=== PATIENT | female | born 1940 | race Caucasian/White ===

== ENCOUNTER 2022-05-03 09:32 | Inpatient (IN) ==
--- NOTE | 2022-04-10 11:39 | PAT Medication Instructions ---
Medication Instructions Date of Service April 10, 2022 Home Medications aspirin 81 mg capsule 81 mg PO QAM carvedilol 12.5 mg tablet 12.5 mg PO BID cholecalciferol (vitamin D3) 50 mcg (2,000 unit) tablet (Vitamin D3) 50 mcg PO QPM famotidine 40 mg tablet 40 mg PO QPM folic acid 1 mg tablet 1 mg PO QAM glyburide 2.5 mg tablet 2.5 mg PO QAM hydralazine 50 mg tablet 50 mg PO TID iron,carbonyl 65 mg-vitamin C 125 mg tablet,delayed release (Vitron-C) 1 tab PO QAM levothyroxine 100 mcg tablet (Synthroid) 100 mcg PO QAM lorazepam 0.5 mg tablet 0.5 mg PO DAILY PRN losartan 25 mg tablet 25 mg PO BID magnesium oxide 250 mg PO QPM leygweehoujd-fifppvcm-qjarnt tablet 1 tab PO QAM pantoprazole 20 mg tablet,delayed release 20 mg PO QAM rosuvastatin 5 mg tablet (Crestor) 5 mg PO QPM DO NOT take the morning of surgery folic acid 1 mg tablet 1 mg PO QAM glyburide 2.5 mg tablet 2.5 mg PO QAM iron,carbonyl 65 mg-vitamin C 125 mg tablet,delayed release (Vitron-C) 1 tab PO QAM losartan 25 mg tablet 25 mg PO BID hnorlfozerkl-azgrewdp-ouinhp tablet 1 tab PO QAM Take morning of surgery With a small sip of water, OTHERWISE NOTHING TO EAT OR DRINK AFTER MIDNIGHT: aspirin 81 mg capsule 81 mg PO QAM (unless surgeon directed otherwise) carvedilol 12.5 mg tablet 12.5 mg PO BID hydralazine 50 mg tablet 50 mg PO TID levothyroxine 100 mcg tablet (Synthroid) 100 mcg PO QAM lorazepam 0.5 mg tablet 0.5 mg PO DAILY PRN (if needed) pantoprazole 20 mg tablet,delayed release 20 mg PO QAM Take evening before surgery carvedilol 12.5 mg tablet 12.5 mg PO BID cholecalciferol (vitamin D3) 50 mcg (2,000 unit) tablet (Vitamin D3) 50 mcg PO QPM famotidine 40 mg tablet 40 mg PO QPM hydralazine 50 mg tablet 50 mg PO TID losartan 25 mg tablet 25 mg PO BID magnesium oxide 250 mg PO QPM rosuvastatin 5 mg tablet (Crestor) 5 mg PO QPM Other Notes If you have any questions please call us at [phone] or [phone] or [phone] or [phone]
--- NOTE | 2022-04-12 14:48 | Anesthesiology Consultation ---
Date of Service April 12, 2022 Assessment & Plan (1) Encounter for pre-operative examination: Chart Review Chart Review: Acceptable Risk for Surgery (pending cardio clearance (04/15/22), previous carotid testing (done at cardio office), PCP clearance (04/18/22) with response to note, and preop Covid testing results ) and Patient seen in Pre Admission Testing - Awaiting cardio clearance (04/15/22) (will also attempt to get carotid testing) - Awaiting PCP clearance (04/18/22) (sent note to PCP regarding anemia, thrombocytopenia and elevated creatinine) - Check BSG AM DOS Per PAT appt on 04/12/22, patient denies any recent travel or large group activities. No known Covid positive exposures or Covid related symptoms. No known Covid infection in the past 90 days. Pt is vaccinated for Covid. Preop Covid testing scheduled 04/30/22 (in [place]) = will await results. Educated on importance of self quarantining, social distancing and wearing mask in public for the patient one week prior to surgery and after Covid testing done Teaching & Discussion Pre-Anesthesia Teaching/Discussion Notes: Instructed NPO after midnight before surgery,except medications with 15 cc of water. Medication instructions provided according to the PAT guidelines. History Surgery Operation Date: 05/03/22 07:45 Proposed Procedures p L3-L4 Decompression Fusion, Spinal Cord Monitoring - Cristhian Chanel DO Height/Weight Height: 5 ft 6 in Weight: 83.2 kg Allergies Allergy/AdvReac Type Severity Reaction Status Date / Time No Known Allergies Allergy Verified 04/10/22 08:18 Medications Home Medications Medication Instructions Recorded Confirmed Last Taken aspirin 81 mg capsule 81 mg PO QAM 04/10/22 04/10/22 Unknown carvedilol 12.5 mg tablet 12.5 mg PO BID 04/10/22 04/10/22 Unknown cholecalciferol (vitamin D3) 50 50 mcg PO QPM 04/10/22 04/10/22 Unknown mcg (2,000 unit) tablet (Vitamin D3) famotidine 40 mg tablet 40 mg PO QPM 04/10/22 04/10/22 Unknown folic acid 1 mg tablet 1 mg PO QAM 04/10/22 04/10/22 Unknown glyburide 2.5 mg tablet 2.5 mg PO QAM 04/10/22 04/10/22 Unknown hydralazine 50 mg tablet 50 mg PO TID 04/10/22 04/10/22 Unknown iron,carbonyl 65 mg-vitamin C 125 1 tab PO QAM 04/10/22 04/10/22 Unknown mg tablet,delayed release (Vitron-C) levothyroxine 100 mcg tablet 100 mcg PO QAM 04/10/22 04/10/22 Unknown (Synthroid) lorazepam 0.5 mg tablet 0.5 mg PO DAILY PRN 04/10/22 04/10/22 Unknown losartan 25 mg tablet 25 mg PO BID 04/10/22 04/10/22 Unknown magnesium oxide 250 mg PO QPM 04/10/22 04/10/22 Unknown xvjlobhvpsyd-spyebhpa-ftnyjy tablet 1 tab PO QAM 04/10/22 04/10/22 Unknown pantoprazole 20 mg tablet,delayed 20 mg PO QAM 04/10/22 04/10/22 Unknown release rosuvastatin 5 mg tablet (Crestor) 5 mg PO QPM 04/10/22 04/10/22 Unknown Past Medical History Medical History (Updated 04/12/22 @ 15:32 by Roseann Mcdaniels PA-C) Anemia Hx - taking iron, transfusion 2015 Anxiety Arthritis Right hip CAD (coronary artery disease) S/p stents to diagonal and circumflex 2010 Borderline significant distal Cx disease, not amendable to stenting, moderate nonobstructive CAD otherwise Carotid stenosis Nonobstructive/bilateral per cardio records Less than 50% stenosis bilaterally per carotid doppler 2019 per 08/2021 cardio note Chronic kidney disease Stage III Diabetes mellitus, type 2 NIDDM GERD (gastroesophageal reflux disease) Well controlled and stable Hyperlipidemia Pt denies- states she is on statin for maintenance Hypertension Hypothyroidism PAD (peripheral artery disease) S/p left SFA atherectomy, 2010 Sleep apnea cpap TIA (transient ischemic attack) 2007 per cardio records Exercise / Class Metabolic Activity II 4-5 Yardwork/Stairs/Walk up hill (one flight of stairs - no chest pain or SOB ) Past Family History Family History Sister Diabetes Past Surgical History Surgical History History of appendectomy History of cardiac cath 02/2011 and 03/2011 Dr. Montano - stents placed History of cholecystectomy History of colonoscopy History of heart artery stent 03/01/2011 04/10/2011 - pt didn't feel right - went to doctor - had stress test - found blockage - Dr. Montano placed - Follows Esteb[facility] Norma at [facility] History of right hip replacement Hx of bilateral cataract extraction Past Anesthesia History No Hx of Anesthesia Complications and No Family Hx of Anesthesia Complications History of PONV No Hx of PONV and No Hx of Motion Sickness Social History Smoking Status: Former smoker tobacco type: cigarettes Do You Dip or Chew Tobacco: No Smoking End Date: 2006 Hx Alcohol Use: No Hx Substance Use: No substance use type: does not use Review of Systems Hx of blood transfusion 2015- s/p MALIHA Patient denies chest pain, shortness of breath, dyspnea on exertion, reflux, cough, wheezing, palpitations. No hx of seizures. No hx of blood clots. Physical Exam Vital Signs VITALS BP 154/69 (usually well controlled per patient) P 58 TEMP 98.5 SP02 95% RESP 16 Constitutional no acute distress ENMT Mouth: no TMJ clicking Thyromental Distance: > or= 3.5 Finger Breadths (3.5) Mallampati Class: II (smaller airway ) Full denture on top and bottom Neck + limited neck extension (mild ) Respiratory normal respiratory effort; no respiratory distress Auscultation: lungs clear to auscultation bilaterally; no wheezes Cardiovascular Rate/Rhythm: regular rate and regular rhythm Heart Sounds: no murmur Vessels: no carotid bruit Musculoskeletal Spine: no pain with cervical ROM Extremities: extremities normal to inspection Psychiatric Orientation: alert Lab Results Anesthesia Preop Results Results Anesthesia Widget: WBC 6.89 K/uL (4.8-10.8) 04/12/22 Hgb 11.2 g/dL (12.0-16.0) L 04/12/22 Hct 35.0 % (37-47) L 04/12/22 Plt 120 K/uL (130-400) L 04/12/22 Na 139 mmol/L (136-145) 04/12/22 K 4.5 mmol/L (3.5-5.1) 04/12/22 Cl 107 mmol/L (98-107) 04/12/22 CO2 28 mmol/L (21-32) 04/12/22 BUN 31 mg/dl (6-23) H 04/12/22 Creat 1.85 mg/dl (0.6-1.2) H 04/12/22 Glucose Level 93 mg/dl (70-99(Fasting)) 04/12/22 PT 11.1 Seconds (9.0-12.0) 04/12/22 PTT 28.2 Seconds (21.0-31.0) 04/12/22 INR 1.0 (0.9-1.1) 04/12/22 HA1c 7.6 % (4.5-5.6) H 04/12/22 Urine Color Yellow 04/12/22 Urine Appearance Clear (Clear) 04/12/22 Urine pH 7.0 (4.5-7.5) 04/12/22 Urine Specific [place] 1.015 (1.000-1.030) 04/12/22 Urine Protein Negative (Negative) 04/12/22 Urine Glucose (UA) Negative (Negative) 04/12/22 Urine Ketones Negative (Negative) 04/12/22 Urine Blood Negative (Negative) 04/12/22 Urine Nitrite Negative (Negative) 04/12/22 Urine Bilirubin Negative (Negative) 04/12/22 Urine Urobilinogen Negative (Negative) 04/12/22 Urine Leukocyte Esterase 1+ (Negative) H 04/12/22 Urine WBC (Auto) 10-30 /hpf (0-5) H 04/12/22 Urine RBC (Auto) 0-4 /hpf (0-4) 04/12/22 Urine Hyaline Casts (Auto) 0 /lpf (0-5) 04/12/22 Urine Epithelial Cells (Auto) >30 /lpf (0-5) H 04/12/22 Urine Bacteria (Auto) 2+ (Negative) H 04/12/22 Blood Type O Positive 04/12/22 Antibody Screen NEGATIVE 04/12/22 Testing Laboratory Results Sent note to PCP regarding mild anemia/thrombocytopenia and elevated creatinine (also informed surgeon's office) Electrocardiogram Date: 04/12/22 Findings: + SB @ (54bpm ) Otherwise normal EKG per cardio Chest X-Ray Date: 04/12/22 Findings: + NAD Echocardiogram Date: 09/04/21 EF: 55-60% LV Function: normal Other Findings: + LVH (borderline/concentric ) Left and right atrium mildly enlarged. Mild MR. Mild TR. Borderline pulm HTN- estimated PASP is 37mmHg. Compared to ECHO 09/05/20- no significant change Stress Test Date: 05/03/16 Type: nuclear SPECT perfusion images are considered to be within normal limits. CAD and ischemiarelatively well. LVEF 71%. Normal wall motion.
[~2022-05-03 09:32] MED LIST: ACETAMINOPHEN 500 MG TAB PO SCH; CeleBREX 200 MG CAP PO SCH; GABAPENTIN 300 MG CAP PO SCH; SODIUM CHLORIDE 0.9% 1000ML IV SCH; ceFAZolin 2000MG 2,000 MG/15 ML SYR IV SCH
[2022-05-03] MEDS ORDERED: fentaNYL citrate 100 MCG/2 ML VIAL ONE (10:21)
[2022-05-03] MEDS ORDERED: ONDANSETRON INJ 2 MG/ML 2 ML VIAL ONE (10:22)
[2022-05-03] MEDS ORDERED: LIDOCAINE 2% 2 ML VIAL/AMP(20MG/ML) INFIL ONE (10:22)
[2022-05-03] MEDS ORDERED: DEXAMETHASONE SOD INJ 4 MG/ML VIAL ONE (10:22)
[2022-05-03] MEDS ORDERED: PROPOFOL IV EMULSION 10 MG/ML 20 ML VIAL IV ONE (10:22)
[2022-05-03] MEDS ORDERED: ROCURONIUM BROMIDE 10 MG/ML 5 ML VIAL IV ONE ×4 (10:22→12:05)
--- NOTE | 2022-05-03 10:58 | History & Physical Bridge Note ---
Date of Service May 03, 2022 History & Physical Bridge Note I have examined the patient, reviewed the History & Physical and in the interval since the performance of the History & Physical I have noted the following changes of clinical significance: no changes noted
--- NOTE | 2022-05-03 10:59 | History & Physical Report ---
Date of Service May 03, 2022 Assessment & Plan (1) Neurogenic claudication due to lumbar spinal stenosis: Plan: L3-L4 decompression and fusion History of Present Illness Chief Complaint: Back and leg pain Primary Care Provider: LAURENCE Marrero This is an 81-year-old female presents with chronic persistent back and leg pain. Failing course of nonoperative care she is here for surgical intervention. Allergies Allergy/AdvReac Type Severity Reaction Status Date / Time No Known Allergies Allergy Verified 05/03/22 10:16 Home Medications Medication Instructions Recorded Confirmed Type aspirin 81 mg capsule 81 mg PO QAM 04/10/22 05/03/22 History carvedilol 12.5 mg tablet 12.5 mg PO BID 04/10/22 05/03/22 History cholecalciferol (vitamin D3) 50 50 mcg PO QPM 04/10/22 05/03/22 History mcg (2,000 unit) tablet (Vitamin D3) famotidine 40 mg tablet 40 mg PO QPM 04/10/22 05/03/22 History folic acid 1 mg tablet 1 mg PO QAM 04/10/22 05/03/22 History glyburide 2.5 mg tablet 2.5 mg PO QAM 04/10/22 05/03/22 History hydralazine 50 mg tablet 50 mg PO TID 04/10/22 05/03/22 History iron,carbonyl 65 mg-vitamin C 125 1 tab PO QAM 04/10/22 05/03/22 History mg tablet,delayed release (Vitron-C) levothyroxine 100 mcg tablet 100 mcg PO QAM 04/10/22 05/03/22 History (Synthroid) lorazepam 0.5 mg tablet 0.5 mg PO DAILY PRN 04/10/22 05/03/22 History losartan 25 mg tablet 25 mg PO BID 04/10/22 05/03/22 History magnesium oxide 250 mg PO QPM 04/10/22 05/03/22 History lktrihcommaj-sklqqieg-mbquul tablet 1 tab PO QAM 04/10/22 05/03/22 History pantoprazole 20 mg tablet,delayed 20 mg PO QAM 04/10/22 05/03/22 History release rosuvastatin 5 mg tablet (Crestor) 5 mg PO QPM 04/10/22 05/03/22 History Past Med/Surg History Medical History (Updated 05/03/22 @ 10:58 by Cristhian Chanel, DO) Anemia Hx - taking iron, transfusion 2015 Anxiety Arthritis Right hip CAD (coronary artery disease) S/p stents to diagonal and circumflex 2010 Borderline significant distal Cx disease, not amendable to stenting, moderate nonobstructive CAD otherwise Carotid stenosis Nonobstructive/bilateral per cardio records Less than 50% stenosis bilaterally per carotid doppler 2019 per 08/2021 cardio note Chronic kidney disease Stage III Diabetes mellitus, type 2 NIDDM GERD (gastroesophageal reflux disease) Well controlled and stable Hyperlipidemia Pt denies- states she is on statin for maintenance Hypertension Hypothyroidism PAD (peripheral artery disease) S/p left SFA atherectomy, 2010 Sleep apnea cpap TIA (transient ischemic attack) 2007 per cardio records Surgical History History of appendectomy History of cardiac cath 02/2011 and 03/2011 Dr. Montano - stents placed History of cholecystectomy History of colonoscopy History of heart artery stent 03/01/2011 04/10/2011 - pt didn't feel right - went to doctor - had stress test - found blockage - Dr. Montano placed - Follows Esteban Green at [facility] History of right hip replacement Hx of bilateral cataract extraction Family History Sister Diabetes Social History Smoking Status: Former smoker Smoking End Date: 2006; Second Hand Exposure: No; Do You Dip or Chew Tobacco: No; Tobacco Cessation Education Requested by Patient: No Hx Alcohol Use: No Hx Substance Use: No Preferred Language: Cypriot Communication Ability: Effective Laminating Machine Offbearer Required: No Beliefs That Will Affect Care: None Current Living Situation: Alone Other Information That Helps Us Care for You: No Feels Safe at Home: Yes Safety Concerns: Feels Safe At This Time Assistive Devices: CPAP, Denture - Upper, Denture - Lower and Glasses Physical Exam Physical Exam: Patient is alert and oriented Heart regular in rhythm Lungs clear Results & Data Results & Data ([facility]) Vital Signs (Past 12 Hours) Vital Signs Temp Pulse Resp BP Pulse Ox 05/03/22 10:12 37.1 C 65 20 160/82 H 95
[2022-05-03] MEDS ORDERED: PROMETHAZINE HCL 12.5 MG in SODIUM CHLORIDE 0.9% 50 ML IV PRN ×2 (11:06→15:57)
[2022-05-03] MEDS ORDERED: HYDROmorphone INJ 2 MG/ML SYR/VIAL IV PRN (11:06)
[2022-05-03] MEDS ORDERED: ePHEDrine sulfate 50 MG/ML AMP IV PRN (11:06)
[2022-05-03] MEDS ORDERED: ONDANSETRON INJ 2 MG/ML 2 ML VIAL IV PRN ×2 (11:06→15:57)
[2022-05-03] MEDS ORDERED: fentaNYL citrate 100 MCG/2 ML VIAL IV PRN (11:06)
[2022-05-03] MEDS ORDERED: ATROPINE SULFATE 0.1 MG/ML 10ML SYR IV PRN (11:06)
[2022-05-03] MEDS ORDERED: BUPIVACAINE/EPINEPHRINE 0.25% 1:200,000 30 ML VIAL ONE (11:22)
[2022-05-03] MEDS ORDERED: ceFAZolin 330 MG/ML 1 GM VIAL ONE (11:22)
[2022-05-03] MEDS ORDERED: FLOSEAL HEMOSTATIC MATRIX 10ML TOP ONE (13:04)
[2022-05-03] MEDS: SODIUM CHLORIDE 0.9% 1000ML 1,000 ML IV SCH (13:20)
--- NOTE | 2022-05-03 13:26 | Operative Report ---
Post Operative Report Pre & Post Diagnosis Operation Date: 05/03/22 11:35 Pre-Op Diagnosis: Neurogenic Claudication due to Lumbar Spinal Stenosis Post-Op Diagnosis: Neurogenic Claudication due to Lumbar Spinal Stenosis I identified the patient and participated in the time-out.: Yes Procedure Operation Date: 05/03/22 11:35 Actual Procedures #1 lumbar decompression bilateral medial facetectomies foraminotomies L2-L3 L3- L4 per #2 posterior spinal fusion L3-L4. #3 placed posterior instrumentation L3-L4. #4 interbody fusion L3-L4. #5 placement of Spira 14 x 26 mm cage at L3- L4. #6 placement locally harvested morselized autograft in the posterior gutters. #7 placement of I factor model V toss in the interbody space and posterior lateral gutters. Surgeon Cristhian Chanel, Environmental Designer None Estimated Blood Loss 75 Findings Consistent with Post-Op Diagnosis Specimens None Indications This is a 81-year-old female that presents above-mentioned diagnosis after failing course of nonoperative care she is here for surgical invention. Description of Procedure Patient was met with identified informed consent obtained. Patient was then taken to the operative suite underwent a patient placed in a prone position on the Joon on top of the Bran frame. All bony prominences well-padded eyes inspected to ensure no external pressure placed upon them. This point the lumbar spine was prepped and draped in the normal sterile fashion. Sharp dissection with the assistance of Bovie cautery was performed down to and exposing the lamina and transverse processes of L3 and L4 bilaterally. From a caudal to cephalad fashion complete laminectomy of L3 partial laminectomy of L2 was performed including bilateral medial facetectomies and foraminotomies addressing severe spinal stenosis. Pedicle screws were then placed at L3 and L4 bilaterally with assistance of fluoroscopy and the properly sized nicole placed. By way of entrance foraminal approach and right complete discectomy of L5-L4 was performed endplates curetted to subcortical being bone and a 14 x 26 mm spiral cage with I factor tapped in position. The rods then compressed locked into final position bilaterally. The transverse processes of L3 and L4 burred to subcortical bleeding bone. I factor combined with V toss and locally harvested morselized autograft was placed in the posterior gutters. 15 round JEVON drain inserted. The incision was then closed with 1 Vicryl in the fascia 2-0 Vicryl subcutaneously and 4 Monocryl for final skin closure. Steri-Strip sterile dressings placed. Patient waken taken PACU stable condition. Please note spinal cord monitoring was utilized at the procedure no changes noted. I attest to the content of the Intraoperative Record and any orders documented therein. Any exceptions are noted below.
[2022-05-03] MEDS ORDERED: GLYCOPYRROLATE 0.2 MG/ML VIAL ONE (13:44)
[2022-05-03] MEDS ORDERED: NEOSTIGMINE METHYLSULFATE 1 MG/ML 10ML VIAL ONE (13:44)
--- NOTE | 2022-05-03 13:45 | Fluoroscopy Report ---
FL lumbar spine 2-3V CLINICAL HISTORY: L3-L4 DECOMP/FUSION COMPARISON STUDY: None. FLUOROSCOPY TIME: 19 seconds. FINDINGS: 2 fluoroscopic spot images of the lumbar spine demonstrate posterior decompression and fusi on with pedicle screws and rods at L3-L4. Disc spacers in place. The hardware appears intact. IMPRESSION: Fluoroscopic assistance provided for posterior decompression and fusion at L3-L4. ACT 112: Negative or not required by law. Electronically signed by: Robin Celaya M.D. 05/03/2022 1:43 PM
--- NOTE | 2022-05-03 14:20 | Anesthesiology Progress Note ---
Date of Service May 03, 2022 Anesthesia Post Procedure Vital Signs Vital Signs: Temp Pulse Resp BP Pulse Ox 05/03/22 14:10 52 L 12 144/55 H 97 05/03/22 14:00 60 12 156/60 H 96 05/03/22 13:50 54 L 12 157/60 H 100 05/03/22 13:40 58 L 12 134/69 100 05/03/22 13:37 97.3 F L 56 L 12 136/54 L 100 05/03/22 10:12 98.8 F 65 20 160/82 H 95 Pain Intensity Lower Back: Pain Intensity: 0 Transfer of Care Handoff Completed per policy Notes Mental Status: alert / awake / arousable and participated in evaluation Patient Amnestic to Procedure: Yes Nausea / Vomiting: adequately controlled Pain: adequately controlled Airway Patency, RR, SpO2: stable & adequate BP & HR: stable & adequate Hydration State: stable & adequate Anesthetic Complications: no major complications apparent and Pt Satisfied with anesthetic care
[2022-05-03] MEDS ORDERED: METOCLOPRAMIDE HCL INJ 5 MG/ML 2 ML VIAL IV PRN (15:57)
[2022-05-03] MEDS ORDERED: ONDANSETRON 4 MG OD TAB PO PRN (15:57)
[2022-05-03] MEDS ORDERED: NALOXONE HCL 0.4 MG/1 ML VIAL/CARP IV PRN (15:57)
[2022-05-03] MEDS ORDERED: diphenhydrAMINE Capsule 25 MG CAP PO PRN (15:57)
[2022-05-03] MEDS ORDERED: hydrOXYzine HCl 25 MG TAB PO PRN (15:57)
[2022-05-03] MEDS ORDERED: HYDROmorphone INJ 1 MG/ML SYRINGE IV PRN (15:57)
[2022-05-03] MEDS ORDERED: bisacodyL 10 MG SUPP PR PRN (15:57)
[2022-05-03] MEDS ORDERED: MAGNESIUM HYDROXIDE SUSP 30 ML UDC PO PRN (15:57)
[2022-05-03] MEDS ORDERED: ACETAMINOPHEN 1,000 MG/100 ML VIAL IV PRN (15:57)
[2022-05-03] MEDS ORDERED: traMADol HCL 50 MG TABLET PO PRN (15:57)
[2022-05-03] MEDS ORDERED: DO NOT ADMINISTER FLU VACCINE PRN (15:57)
[2022-05-03] MEDS ORDERED: FAMOTIDINE 20 MG TAB PO PRN (15:57)
[2022-05-03] MEDS ORDERED: ALUMINUM/MAGNESIUM SUSP 30 ML UDC PO PRN (15:57)
[2022-05-03] MEDS ORDERED: LORazepam 0.5 MG in SYRINGE 0.25 ML IV PRN (15:57)
[2022-05-03] MEDS ORDERED: HYDROmorphone INJ 0.5 MG/0.5 ML SYR IV PRN (15:57)
[2022-05-03] MEDS ORDERED: LORazepam 0.5 MG TAB PO PRN (15:57)
[2022-05-03] MEDS ORDERED: DO NOT ADMINISTER PNEUMOCOCCAL VACCINE PRN (15:57)
[2022-05-03] MEDS ORDERED: SOD PHOSPHATE/SOD BIPHOSPHATE ENEMA 132 ML BTL PR PRN (15:57)
[2022-05-03] MEDS: hydrALAZINE TAB 50 MG TAB PO SCH ×2 (16:47→20:24)
--- NOTE | 2022-05-03 17:14 | Hospitalist Consultation ---
Date of Consultation May 03, 2022 Assessment & Plan (1) S/P spinal surgery: This is an 81-year-old female with PMH of type 2 diabetes, CAD (s/p stents 2010), CKD 3-4, anemia, hypertension, hyperlipidemia, OLE on CPAP, history of TIA, chronic back pain and other medical problems listed below who is POD#0 s/p lumbar decompression bilateral medial facetectomies foraminotomies L2-L3 L3-L4 and posterior spinal fusion L3-L4 by Dr. Chanel. POD#0 s/p lumbar decompression bilateral medial facetectomies foraminotomies L2- L3 L3-L4 and posterior spinal fusion L3-L4 by Dr. Chanel Per ortho for pain control, wound care, anticoagulation and activities Monitor H&H (pre-op hgb 11.2), continue incentive spirometry, PT/OT when appropriate (2) Hypertension: Continue Carvedilol, hydralazine. Monitor AM BMP for renal status prior to resuming losartan in AM (3) Diabetes mellitus, type 2: A1c unknown; ordered for AM Hold home agents SSI while in-patient BSG AC HS (4) Chronic kidney disease: Baseline Cr ~1.85. Avoid nephrotoxic agents. Monitor with daily BMP (5) CAD (coronary artery disease): S/p stents in 2010. No chest pain. Normal pre-op stress test last month with [facility] cardiology. Continue aspirin, statin, carvedilol (6) PAD (peripheral artery disease): Intervention to Left SFA in 2010. Continue aspirin, statin (7) Anxiety: Ativan PRN (8) Anemia: Pre-op hgb 11. Monitor with daily CBC. Has required blood transfusion in the past for anemia (9) Hypothyroidism: Continue levothyroxine (10) Sleep apnea: CPAP HS PCP: José Dispo: Per primary service Patient seen in collaboration with Dr. Martinez. Please see addendum. Thank you for this consultation. We will follow the patient with you during their hospital stay. You can reach a [facility] via pager @ [phone]. Supervising Physician Co-Signing Physician Notes 51-year-old lady with PMH of T2DM, CAD status post stents, CKD stage III-IV, HTN, HLD, OLE on CPAP, TIA is a medical consult for lumbar decompression and fusion by Dr. Chanel on 05/03/2022. Patient seen and examined at bedside, just done with her dinner, tolerated full liquid diet well, reports pain under control at incision site, reports improvement in her right calf radicular pain. Labs in a.m., watch for acute blood loss anemia. Incentive spirometer. DVT prophylaxis/pain management/PT OT per primary team. Continue with/resume home meds as and when appropriate. Upon Exam : GENERAL: Alert and oriented x3. NAD, on 1L NC O2 HEENT: No pallor, no icterus. Pupils equal, round and reactive to light. Oral mucosa moist. NECK: No JVD, no neck masses. HEART: S1 and S2 heard. Regular rate and rhythm. No murmur, no gallop. RESPIRATORY SYSTEM: Normal AP diameter. No accessory muscle use. No wheezing, no crackles. ABDOMEN: Soft, bowel sounds present, nontender, no distention. CENTRAL NERVOUS SYSTEM: No facial droop. Speech is clear. Obeys simple commands. Moves extremities. EXTREMITIES: No edema, no erythema seen. Distal neurovascular status intact. Low back with clean dressing, JEVON drain with scant serosanguineous collection noted. I have seen and examined the patient and have discussed the case with the provider above. I agree with the assessment and plan as stated. History of Present Illness Reason for Consultation: Postop medical management Attending Physician: Cristhian Chanel, History of Present Illness This is an 81-year-old female with PMH of type 2 diabetes, CAD (s/p stents 2010), CKD 3-4, anemia, hypertension, hyperlipidemia, OLE on CPAP, history of TIA, chronic back pain and other medical problems listed below who is POD#0 s/p lumbar decompression bilateral medial facetectomies foraminotomies L2-L3 L3-L4 and posterior spinal fusion L3-L4 by Dr. Chanel. Patient is feeling well postoperatively. Endorsing 5 out of 10 surgical site pain but no weakness or paresthesias of lower extremities, which is much improved from preoperative state. Tolerated clear liquid diet without any issue. No nausea or vomiting. No fever, chills, lightheadedness, headache, chest pain, shortness of breath, abdominal pain. Has not urinated postoperatively yet. Bowel movement was this morning. Follows with primary care and [facility] clinic. Follows with [facility] cardiology and underwent preoperative stress test which was normal back in March. Allergies Allergy/AdvReac Type Severity Reaction Status Date / Time No Known Allergies Allergy Verified 05/03/22 10:16 Home Medications Medication Instructions Recorded Confirmed Type aspirin 81 mg capsule 81 mg PO QAM 04/10/22 05/03/22 History carvedilol 12.5 mg tablet 12.5 mg PO BID 04/10/22 05/03/22 History cholecalciferol (vitamin D3) 50 50 mcg PO QPM 04/10/22 05/03/22 History mcg (2,000 unit) tablet (Vitamin D3) famotidine 40 mg tablet 40 mg PO QPM 04/10/22 05/03/22 History folic acid 1 mg tablet 1 mg PO QAM 04/10/22 05/03/22 History glyburide 2.5 mg tablet 2.5 mg PO QAM 04/10/22 05/03/22 History hydralazine 50 mg tablet 50 mg PO TID 04/10/22 05/03/22 History iron,carbonyl 65 mg-vitamin C 125 1 tab PO QAM 04/10/22 05/03/22 History mg tablet,delayed release (Vitron-C) levothyroxine 100 mcg tablet 100 mcg PO QAM 04/10/22 05/03/22 History (Synthroid) lorazepam 0.5 mg tablet 0.5 mg PO DAILY PRN 04/10/22 05/03/22 History losartan 25 mg tablet 25 mg PO BID 04/10/22 05/03/22 History magnesium oxide 250 mg PO QPM 04/10/22 05/03/22 History teeqntunrljj-baznrlnu-jlvwjm tablet 1 tab PO QAM 04/10/22 05/03/22 History pantoprazole 20 mg tablet,delayed 20 mg PO QAM 04/10/22 05/03/22 History release rosuvastatin 5 mg tablet (Crestor) 5 mg PO QPM 04/10/22 05/03/22 History Patient History Medical History (Updated 05/03/22 @ 17:19 by Sheila Tristan PA-C) Anemia Hx - taking iron, transfusion 2015 Anxiety Arthritis Right hip CAD (coronary artery disease) S/p stents to diagonal and circumflex 2010 Borderline significant distal Cx disease, not amendable to stenting, moderate nonobstructive CAD otherwise Carotid stenosis Nonobstructive/bilateral per cardio records Less than 50% stenosis bilaterally per carotid doppler 2019 per 08/2021 cardio note Chronic kidney disease Stage III Diabetes mellitus, type 2 NIDDM GERD (gastroesophageal reflux disease) Well controlled and stable Hyperlipidemia Pt denies- states she is on statin for maintenance Hypertension Hypothyroidism PAD (peripheral artery disease) S/p left SFA atherectomy, 2010 Sleep apnea cpap TIA (transient ischemic attack) 2007 per cardio records Surgical History (Updated 05/03/22 @ 17:19 by Sheila Tristan PA-C) History of appendectomy History of cardiac cath 02/2011 and 03/2011 Dr. Montano - stents placed History of cholecystectomy History of colonoscopy History of heart artery stent 03/01/2011 04/10/2011 - pt didn't feel right - went to doctor - had stress test - found blockage - Dr. Montano placed - Follows Esteban [facility] at [facility] History of right hip replacement Hx of bilateral cataract extraction Family History (Updated 05/03/22 @ 17:17 by Sheila Tristan PA-C) Sister Diabetes Other Heart disease Social History Smoking Status: Former smoker Smoking End Date: 2006; Second Hand Exposure: No; Do You Dip or Chew Tobacco: No; Tobacco Cessation Education Requested by Patient: No Hx Alcohol Use: No Hx Substance Use: No Preferred Language: Turkmen Communication Ability: Effective Plisse Machine Operator Required: No Beliefs That Will Affect Care: None Current Living Situation: Alone Other Information That Helps Us Care for You: No Feels Safe at Home: Yes Safety Concerns: Feels Safe At This Time Assistive Devices: CPAP, Denture - Upper, Denture - Lower and Glasses Review of Systems Review of Systems: At least ten systems reviewed and negative except as noted in the HPI. Physical Exam Physical Exam: General Appearance: WD/WN, vitals as above, NAD, lying in bed, pleasant, conversing easily Head: normocephalic, atraumatic Eyes: normal inspection, PERRL ENT: external ear and nose normal, oropharynx normal Respiratory: normal respiratory effort, lungs clear to auscultation, no wheeze, rales, rhonchi. No accessory muscle use Cardiovascular: regular rate, rhythm, no murmur, normal peripheral pulses, no BLE edema Abdomen/GI: normal bowel sounds, soft, nontender, no hepatosplenomegaly Extremities/Musculoskeletal: +Spinal dressing c/d/i. JEVON drain visualized. No cyanosis or clubbing, extremities motor strength 5/5 Neurologic: PERRL, CN's II-XI intact bilaterally and moves all extremities Psychiatric: A+Ox3, euthymic affect Skin: no rashes, normal color, warm/dry Results & Data Results & Data ([facility]) Vital Signs (Past 12 Hours) Vital Signs Temp Pulse Pulse Resp BP Pulse Ox 05/03/22 16:45 36.5 C 57 L 16 160/71 H 96 05/03/22 15:50 36.4 C L 58 L 18 152/64 H 97 05/03/22 15:20 36.5 C 60 16 155/79 H 95 05/03/22 14:59 36.4 C L 53 L 12 138/51 L 96 05/03/22 14:45 52 L 12 139/52 L 96 05/03/22 14:30 56 L 12 144/50 H 98 05/03/22 14:20 53 L 12 151/57 H 97 05/03/22 14:10 52 L 12 144/55 H 97 05/03/22 14:00 60 12 156/60 H 96 05/03/22 13:50 54 L 12 157/60 H 100 05/03/22 13:40 58 L 12 134/69 100 05/03/22 13:37 36.3 C L 56 L 12 136/54 L 100 05/03/22 10:12 37.1 C 65 20 160/82 H 95
[2022-05-03] MEDS ORDERED: CARBOHYDRATES FOR HYPOGLYCEMIA PO PRN (17:22)
[2022-05-03] MEDS ORDERED: GLUCOSE 10 TAB/TUBE PO PRN ×2 (17:22→18:30)
[2022-05-03] MEDS ORDERED: GLUCAGON FOR INJ 1 MG VIAL SQ PRN (17:22)
[2022-05-03] MEDS ORDERED: GLUCOSE 40% GEL 15 GM TUBE PO PRN (17:22)
[2022-05-03] MEDS ORDERED: DEXTROSE 50% 50 ML SYRINGE IV PRN (17:22)
[2022-05-03] MEDS ORDERED: LANTUS PER UNIT CHARGE SQ ONE (18:29)
[2022-05-03] MEDS: INSULIN ASPART PER UNIT SC SCH ×2 (18:36→22:34)
[2022-05-03] MEDS: ceFAZolin 2000MG 2,000 MG/15 ML SYR IV SCH (20:13)
[2022-05-03] MEDS: DOCUSATE SODIUM/SENNA 50/8.6MG TAB PO SCH (20:22)
[2022-05-03] MEDS: FAMOTIDINE 40 MG TABLET PO SCH (20:24)
[2022-05-03] MEDS: CHOLECALCIFEROL 1,000 UNITS 25 MCG TAB PO SCH (20:25)
[2022-05-03] MEDS: carvediloL 12.5 MG TAB PO SCH (20:25)
[2022-05-03] MEDS: MAGNESIUM OXIDE 400 MG TAB PO SCH (20:27)
[2022-05-03] MEDS: ROSUVASTATIN CALCIUM 5 MG TAB PO SCH (20:28)
[2022-05-03] MEDS ORDERED: LOSARTAN POTASSIUM 25 MG TAB PO SCH (21:00)
[2022-05-03] MEDS ORDERED: INSULIN ASPART PER UNIT SC SCH (21:00)
[2022-05-04] MEDS: oxyCODONE HCL IR 5 MG TAB (IMMEDIATE RELEASE) PO PRN ×3 (02:05→19:59)
[2022-05-04] MEDS: ceFAZolin 2000MG 2,000 MG/15 ML SYR IV SCH (03:08)
[2022-05-04] MEDS: SODIUM CHLORIDE 0.9% 1000ML 1,000 ML IV SCH ×2 (05:15→07:33)
[2022-05-04] MEDS: POLYETHYLENE (MIRALAX) 17 GM PACK PO SCH ×3 (05:55→18:18)
[2022-05-04 06:24] LABS: Basophils # (auto) 0.03 K/uL (0-0.2); Basophils % (auto) 0.4 %; Hematocrit (blood only) 29.1 % (34.1-44.9); Hemoglobin 9.3 g/dl (12.0-16.0); Immature Granulocytes # (auto) 0.02 K/uL (0.00-0.02); Immature Granulocytes % (auto) 0.3 %; Lymphocytes % (auto) 10.2 %; Mean Corpuscular Hemoglobin 29.7 pg (25.0-34.0); Mean Platelet Volume 11.7 fL (9.4-12.3); Monocytes # (auto) 0.59 K/uL (0.24-0.82); Monocytes % (auto) 8.6 %; Neutrophils # (auto) 5.55 K/uL (1.4-6.5); Neutrophils % (auto) 80.5 %; Platelet Count 90 K/uL (130-400); Platelet Estimate Decreased (Normal); RDW Standard Deviation 43.9 fL (36.4-46.3); Red Blood Count 3.13 M/uL (3.93-5.22); White Blood Count 6.89 K/ul (4.8-10.8)
[2022-05-04 06:34] LABS: BUN Creatinine Ratio 17.8 (10-20); Creatinine Clr Calc Pharmacy 25.5 ml/min; Est GFR (African American) 28.9 ml/min; Est GFR (Non-African American) 24.9 ml/min; Potassium 4.9 mmol/L (3.5-5.1)
[2022-05-04 07:48] LABS: Estimated Average Glucose 169 mg/dl; Hemoglobin A1C 7.5 % (4.5-5.6)
[2022-05-04] MEDS ORDERED: glyBURIDE 2.5 MG TAB PO SCH (09:00)
[2022-05-04] MEDS: PANTOprazole 40 MG TAB PO SCH (09:14)
[2022-05-04] MEDS: LEVOTHYROXINE SODIUM 100 MCG TABLET PO SCH (09:15)
[2022-05-04] MEDS: LOSARTAN POTASSIUM 25 MG TAB PO SCH ×2 (09:15→21:22)
[2022-05-04] MEDS: CEROVITE ADV FORMULA TAB PO SCH (09:15)
[2022-05-04] MEDS: FOLIC ACID 1 MG TAB PO SCH (09:16)
[2022-05-04] MEDS: hydrALAZINE TAB 50 MG TAB PO SCH ×3 (09:16→21:23)
[2022-05-04] MEDS: carvediloL 12.5 MG TAB PO SCH ×2 (09:17→21:37)
[2022-05-04] MEDS: FERROUS SULFATE 325 MG TAB PO SCH (09:17)
[2022-05-04] MEDS: ASPIRIN 81 MG ECTAB PO SCH (09:18)
[2022-05-04] MEDS: ASCORBIC ACID 500 MG TAB PO SCH (09:19)
[2022-05-04] MEDS: dexAMETHasone 6 MG in SYRINGE 0 ML IV SCH (09:22)
[2022-05-04] MEDS: INSULIN ASPART PER UNIT SC SCH ×4 (09:26→21:38)
[2022-05-04] MEDS: ACETAMINOPHEN 500 MG TAB PO PRN ×2 (09:32→21:42)
--- NOTE | 2022-05-04 10:50 | Orthopedic Progress Note ---
Date of Service May 04, 2022 Assessment & Plan (1) Neurogenic claudication due to lumbar spinal stenosis: Plan: At this time continue physical therapy monitor JEVON output anticipate discharge home in next few days. Admission and Anticipated Discharge Date Admission Date: May 03, 2022 Subjective Patient's back pain is controlled leg pain markedly improved Physical Exam Physical Exam: Patient is ambulating halls. She is comfortable. Skin strength testing. Results & Data ([facility]) Vital Signs (Past 12 Hours) Vital Signs Temp Pulse Resp BP Pulse Ox 05/04/22 07:00 36.4 C L 61 16 130/63 91 05/04/22 02:03 36.5 C 56 L 16 132/62 94
--- NOTE | 2022-05-04 14:29 | Hospitalist Progress Note ---
Date of Service May 04, 2022 Assessment & Plan (1) S/P spinal surgery: Plan: This is an 81-year-old female with PMH of type 2 diabetes, CAD (s/p stents 2010), CKD 3-4, anemia, hypertension, hyperlipidemia, OLE on CPAP, history of TIA, chronic back pain and other medical problems listed below who is POD#0 s/p lumbar decompression bilateral medial facetectomies foraminotomies L2-L3 L3-L4 and posterior spinal fusion L3-L4 by Dr. Chanel. POD#1 s/p lumbar decompression bilateral medial facetectomies foraminotomies L2- L3 L3-L4 and posterior spinal fusion L3-L4 by Dr. Chanel Per ortho for pain control, wound care, anticoagulation and activities continue incentive spirometry, PT/OT when appropriate Acute blood loss anemia, post-op, dilutional - expected, no need for blood transfusion (pre-op hgb 11.2), currently 9.3 - cont. iron supplement Monitor H&H (2) Hypertension: Plan: Continue Carvedilol, hydralazine. Monitor BMP (3) Diabetes mellitus, type 2: Plan: A1c 7.5% Hold home agents SSI while in-patient BSG AC HS (4) Chronic kidney disease: Plan: Baseline Cr ~1.85. Avoid nephrotoxic agents. Monitor with daily BMP - Cr unchanged today (5) CAD (coronary artery disease): Plan: S/p stents in 2010. No chest pain. Normal pre-op stress test last month with [facility] cardiology. Continue aspirin, statin, carvedilol (6) PAD (peripheral artery disease): Plan: Intervention to Left SFA in 2010. Continue aspirin, statin (7) Anxiety: Plan: Ativan PRN (8) Anemia: Plan: Pre-op hgb 11. Monitor with daily CBC. Has required blood transfusion in the past for anemia Addressed above (9) Hypothyroidism: Plan: Continue levothyroxine (10) Sleep apnea: Plan: CPAP HS PCP: Dr. Kumar Dispo: Per primary service Thank you for this consultation. We will follow the patient with you during their hospital stay. You can reach a [facility] via pager @ [phone]. Admission and Anticipated Discharge Date Admission Date: May 03, 2022 Subjective Patient seen in follow-up of lumbar spine surgery Currently patient is sitting up in bed, in no acute distress No fevers, chills, chest pain, shortness of breath, or abdominal pain , overall feeling quite well Ambulating, voiding without difficulty, passing gas, no BM Asks for Colace, will order Review of Systems Review of Systems: All systems reviewed & are unremarkable except as noted in Subjective Physical Exam Physical Exam: General Appearance :WD/WN, NAD, ple asant, conversing easily Head: norm ocephalic, atrauma tic Eyes:PERRL, EOMI ENT: externa l ear and nose nor mal, oropharynx no rmal Respiratory: normal respiratory effort, lungs julia ar to auscultation , no wheeze, rales , rhonchi. No acc essory muscle use Cardiovascular: r egular rate, rhyth m, no murmur, norm al peripheral puls es, no BLE edema A bdomen/GI: normal bowel sounds, sof t, nontender Extre mities/Musculoskel etal:+Spinal dres sing c/d/i. JEVON yosi in visualized.ext remities motor str ength 5/5 Neurolog ic: PERRL, EOMI, speech fluent, no facial asymmetry, moves all extremit ies Psychiatric: A+Ox3, euthymic af fect Skin: no filiberto hes, normal color, warm/dry Results & Data Results & Data ([facility]) Vital Signs (Past 12 Hours) Vital Signs Temp Pulse Resp BP Pulse Ox 05/04/22 11:03 36.5 C 54 L 16 121/64 90 05/04/22 07:00 36.4 C L 61 16 130/63 91 Laboratory Results 05/04/22 05/04/22 05/04/22 Range/Units 12:05 08:11 05:24 WBC (4.8-10.8) K/ul RBC (3.93-5.22) M/uL Hgb (12.0-16.0) g/dl Hct (34.1-44.9) % MCV (80.0-100.0) fL MCH (25.0-34.0) pg MCHC (32.0-36.0) g/dL RDW Std Deviation (36.4-46.3) fL RDW Coeff of Chelsie (11.5-14.5) % Plt Count (130-400) K/uL MPV (9.4-12.3) fL Immature Gran % (Auto) % Neut % (Auto) % Lymph % (Auto) % [place] % (Auto) % Eos % (Auto) % Baso % (Auto) % Neut # (Auto) (1.4-6.5) K/uL Lymph # (Auto) (1.2-3.4) K/uL [place] # (Auto) (0.24-0.82) K/uL Eos # (Auto) (0-0.50) K/uL Baso # (Auto) (0-0.2) K/uL Immature Gran # (Auto) (0.00-0.02) K/uL Platelet Estimate (Normal) Sodium 139 (136-145) mmol/L Potassium 4.9 (3.5-5.1) mmol/L Chloride 110 H (98-107) mmol/L Carbon Dioxide 24 (21-32) mmol/L Anion Gap 5 (3-11) BUN 33 H (6-23) mg/dl Creatinine 1.85 H (0.6-1.2) mg/dl Est Cr Clr Drug Dosing 25.5 ml/min Est GFR ( Amer) 28.9 ml/min Est GFR (Non-Af Amer) 24.9 ml/min BUN/Creatinine Ratio 17.8 (10-20) Glucose 146 H (70-99(Fasting)) mg/dl POC Glucose 162 H 145 H (70-99) mg/dl Estimat Average Glucose mg/dl Hemoglobin A1c (4.5-5.6) % Calcium 8.0 L (8.5-10.1) mg/dl 05/04/22 05/04/22 05/03/22 Range/Units 05:24 05:24 22:18 WBC 6.89 (4.8-10.8) K/ul RBC 3.13 L (3.93-5.22) M/uL Hgb 9.3 L (12.0-16.0) g/dl Hct 29.1 L (34.1-44.9) % MCV 93.0 (80.0-100.0) fL MCH 29.7 (25.0-34.0) pg MCHC 32.0 (32.0-36.0) g/dL RDW Std Deviation 43.9 (36.4-46.3) fL RDW Coeff of Chelsie 13.0 (11.5-14.5) % Plt Count 90 L (130-400) K/uL MPV 11.7 (9.4-12.3) fL Immature Gran % (Auto) 0.3 % Neut % (Auto) 80.5 % Lymph % (Auto) 10.2 % [place] % (Auto) 8.6 % Eos % (Auto) 0.0 % Baso % (Auto) 0.4 % Neut # (Auto) 5.55 (1.4-6.5) K/uL Lymph # (Auto) 0.70 L (1.2-3.4) K/uL [place] # (Auto) 0.59 (0.24-0.82) K/uL Eos # (Auto) 0.00 (0-0.50) K/uL Baso # (Auto) 0.03 (0-0.2) K/uL Immature Gran # (Auto) 0.02 (0.00-0.02) K/uL Platelet Estimate Decreased L (Normal) Sodium (136-145) mmol/L Potassium (3.5-5.1) mmol/L Chloride (98-107) mmol/L Carbon Dioxide (21-32) mmol/L Anion Gap (3-11) BUN (6-23) mg/dl Creatinine (0.6-1.2) mg/dl Est Cr Clr Drug Dosing ml/min Est GFR ( Amer) ml/min Est GFR (Non-Af Amer) ml/min BUN/Creatinine Ratio (10-20) Glucose (70-99(Fasting)) mg/dl POC Glucose 209 H (70-99) mg/dl Estimat Average Glucose 169 mg/dl Hemoglobin A1c 7.5 H (4.5-5.6) % Calcium (8.5-10.1) mg/dl 05/03/22 Range/Units 17:11 WBC (4.8-10.8) K/ul RBC (3.93-5.22) M/uL Hgb (12.0-16.0) g/dl Hct (34.1-44.9) % MCV (80.0-100.0) fL MCH (25.0-34.0) pg MCHC (32.0-36.0) g/dL RDW Std Deviation (36.4-46.3) fL RDW Coeff of Chelsie (11.5-14.5) % Plt Count (130-400) K/uL MPV (9.4-12.3) fL Immature Gran % (Auto) % Neut % (Auto) % Lymph % (Auto) % [place] % (Auto) % Eos % (Auto) % Baso % (Auto) % Neut # (Auto) (1.4-6.5) K/uL Lymph # (Auto) (1.2-3.4) K/uL [place] # (Auto) (0.24-0.82) K/uL Eos # (Auto) (0-0.50) K/uL Baso # (Auto) (0-0.2) K/uL Immature Gran # (Auto) (0.00-0.02) K/uL Platelet Estimate (Normal) Sodium (136-145) mmol/L Potassium (3.5-5.1) mmol/L Chloride (98-107) mmol/L Carbon Dioxide (21-32) mmol/L Anion Gap (3-11) BUN (6-23) mg/dl Creatinine (0.6-1.2) mg/dl Est Cr Clr Drug Dosing ml/min Est GFR ( Amer) ml/min Est GFR (Non-Af Amer) ml/min BUN/Creatinine Ratio (10-20) Glucose (70-99(Fasting)) mg/dl POC Glucose 197 H (70-99) mg/dl Estimat Average Glucose mg/dl Hemoglobin A1c (4.5-5.6) % Calcium (8.5-10.1) mg/dl Medications Administered Current Inpatient Medications Acetaminophen (Acetaminophen 500 Mg Tab) 1,000 mg PO Q8H PRN PRN Reason: MILD Pain Scale 1,2,3 & Pre PT Stop: 06/02/22 15:56 Last Admin: 05/04/22 09:32 Dose: 1,000 mg Documented by: Al Hydrox/Mg Hydrox/Simethicone (Aluminum/Magnesium Susp 30 Ml Udc) 30 ml PO Q6H PRN PRN Reason: Dyspepsia Stop: 06/02/22 15:56 Ascorbic Acid (Ascorbic Acid 500 Mg Tab) 250 mg PO QAM RAUL Stop: 06/03/22 08:59 Last Admin: 05/04/22 09:19 Dose: 250 mg Documented by: Aspirin (Aspirin 81 Mg Ectab) 81 mg PO QAM [facility] Stop: 06/03/22 08:59 Last Admin: 05/04/22 09:18 Dose: 81 mg Documented by: Bisacodyl (Bisacodyl 10 Mg Supp) 10 mg NE DAILY PRN PRN Reason: Constipation Stop: 06/02/22 15:56 Carvedilol (Carvedilol 12.5 Mg Tab) 12.5 mg PO BID [facility] Stop: 06/02/22 20:59 Last Admin: 05/04/22 09:17 Dose: 12.5 mg Documented by: Dextrose (Dextrose 50% 50 Ml Syringe) 25 - 50 ml IV UD PRN; Protocol PRN Reason: Hypoglycemia Protocol Stop: 06/02/22 17:21 Diphenhydramine HCl (Diphenhydramine Capsule 25 Mg Cap) 25 mg PO Q6H PRN PRN Reason: Allergic Rhinitis/Insomnia Stop: 06/02/22 15:56 Famotidine (Famotidine 40 Mg Tablet) 40 mg PO QPM [facility] Stop: 06/02/22 20:59 Last Admin: 05/03/22 20:24 Dose: 40 mg Documented by: Ferrous Sulfate (Ferrous Sulfate 325 Mg Tab) 325 mg PO QAM [facility] Stop: 06/03/22 08:59 Last Admin: 05/04/22 09:17 Dose: 325 mg Documented by: Folic Acid (Folic Acid 1 Mg Tab) [facility] Stop: 06/03/22 08:59 Last Admin: 05/04/22 09:16 Dose: 1 mg Documented by: Glucagon (Glucagon For Inj 1 Mg Vial) 1 mg SQ UD PRN; Protocol PRN Reason: Hypoglycemia Protocol Stop: 06/02/22 17:21 Glucose (Glucose 40% Gel 15 Gm Tube) 15 - 30 gm PO UD PRN; Protocol PRN Reason: Hypoglycemia Protocol Stop: 06/02/22 17:21 Glucose (Glucose 10 Tabs/Tube) 4 - 8 tab PO UD PRN; Protocol PRN Reason: Hypoglycemia Protocol Stop: 06/02/22 18:29 Hydralazine HCl (Hydralazine Tab 50 Mg Tab) 50 mg PO TID [facility] Stop: 06/02/22 15:56 Last Admin: 05/04/22 09:16 Dose: 50 mg Documented by: Hydromorphone HCl (Hydromorphone Inj 0.5 Mg/0.5 Ml Syr) 0.5 mg IV Q3H PRN PRN Reason: MODERATE Pain (Scale 4,5,6) & Pre PT Stop: 05/17/22 15:56 Hydromorphone HCl (Hydromorphone Inj 1 Mg/Ml Syringe) 1 mg IV Q3H PRN PRN Reason: SEVERE Pain (Scale 7,8,9,10) Stop: 05/17/22 15:56 Hydroxyzine HCl (Hydroxyzine Hcl 25 Mg Tab) 25 mg PO Q8H PRN PRN Reason: Anxiety Stop: 06/02/22 15:56 Promethazine HCl 12.5 mg/ (Sodium Chloride) 50.5 mls @ 202 mls/hr IV Q6H PRN PRN Reason: Nausea &/or Vomiting Stop: 06/02/22 15:56 Acetaminophen (Ofirmev) 1,000 mg in 100 mls @ 400 mls/hr IV Q8H PRN PRN Reason: Pain Rating 1-3 & Pre PT Stop: 05/06/22 15:56 Lorazepam 0.5 mg/ Syringe 0.5 mls @ 2 mls/min IV Q8H PRN PRN Reason: Sedation/Anxiety Stop: 06/02/22 15:56 Dexamethasone 6 mg/ Syringe 1.5 mls @ 1 mls/min IV DAILY [facility] Stop: 05/06/22 09:02 Last Admin: 05/04/22 09:22 Dose: 1 mls/min Documented by: Influenza Virus Vaccine Quadrival (Do Not Administer Flu Vaccine) 1 ea N/A PRN PRN PRN Reason: Notification Stop: 06/02/22 15:56 Insulin Aspart (Insulin Aspart Per Unit) 0 units SC ACHS [facility] Stop: 06/02/22 17:49 Last Admin: 05/04/22 14:15 Dose: 3 units Documented by: Levothyroxine Sodium (Levothyroxine Sodium 100 Mcg Tablet) 100 mcg PO QAM [facility] Stop: 06/03/22 08:59 Last Admin: 05/04/22 09:15 Dose: 100 mcg Documented by: Lorazepam (Lorazepam 0.5 Mg Tab) 0.5 mg PO Q8H PRN PRN Reason: Sedation/Anxiety Stop: 06/02/22 15:56 Losartan Potassium (Losartan Potassium 25 Mg Tab) 25 mg PO BID [facility] Stop: 06/03/22 08:59 Last Admin: 05/04/22 09:15 Dose: 25 mg Documented by: Magnesium Hydroxide (Magnesium Hydroxide Susp 30 Ml Udc) 30 ml PO Q24H PRN PRN Reason: Constipation Stop: 06/02/22 15:56 Magnesium Oxide (Magnesium Oxide 400 Mg Tab) 200 mg PO QPM RAUL Stop: 06/02/22 20:59 Last Admin: 05/03/22 20:27 Dose: 200 mg Documented by: Metoclopramide HCl (Metoclopramide Hcl Inj 5 Mg/Ml 2 Ml Vial) 10 mg IV Q6H PRN PRN Reason: Nausea &/or Vomiting Stop: 06/02/22 15:56 Miscellaneous (Carbohydrates For Hypoglycemia ) 15 - 30 gm PO UD PRN PRN Reason: Hypoglycemia Protocol Stop: 06/02/22 17:21 Multivitamins/Minerals (Cerovite Adv Formula Tab) 1 tab PO QAM [facility] Stop: 06/03/22 08:59 Last Admin: 05/04/22 09:15 Dose: 1 tab Documented by: Naloxone HCl (Naloxone Hcl 0.4 Mg/1 Ml Vial/Carp) 0.1 mg IV Q5M PRN PRN Reason: Oversedation/Resp depression Stop: 06/02/22 15:56 Ondansetron HCl (Ondansetron Inj 2 Mg/Ml 2 Ml Vial) 4 mg IV Q6H PRN PRN Reason: Nausea &/or Vomiting Stop: 06/02/22 15:56 Last Admin: 05/03/22 16:19 Dose: 4 mg Documented by: Ondansetron HCl (Ondansetron 4 Mg Od Tab) 4 mg PO Q6H PRN PRN Reason: Nausea Stop: 06/02/22 15:56 Oxycodone HCl (Oxycodone Hcl Ir 5 Mg Tab (Immediate Release)) 5 - 10 mg PO Q4H PRN PRN Reason: Pain & Pre PT Stop: 05/17/22 15:56 Last Admin: 05/04/22 07:54 Dose: 5 mg Documented by: Pantoprazole Sodium (Pantoprazole 40 Mg Tab) 40 mg PO QAM RAUL Stop: 06/03/22 08:59 Last Admin: 05/04/22 09:14 Dose: 40 mg Documented by: Pneumococcal Polyvalent Vaccine (Do Not Administer Pneumococcal Vaccine) 1 ea N/A PRN PRN PRN Reason: Notification Stop: 06/02/22 15:56 Polyethylene Glycol (Polyethylene (Miralax) 17 Gm Pack) 17 gm PO Q6 RAUL Stop: 06/03/22 05:59 Last Admin: 05/04/22 11:19 Dose: 17 gm Documented by: Rosuvastatin Calcium (Rosuvastatin Calcium 5 Mg Tab) 5 mg PO QPM RAUL Stop: 06/02/22 20:59 Last Admin: 05/03/22 20:28 Dose: 5 mg Documented by: Senna/Docusate Sodium (Docusate Sodium/Senna 50/8.6mg Tab) 2 tab PO HS RAUL Stop: 06/02/22 20:59 Last Admin: 05/03/22 20:22 Dose: 2 tab Documented by: Sodium Biphosphate/Sodium Phosphate (Sod Phosphate/Sod Biphosphate Enema 132 Ml Btl) 132 ml NE ONE PRN PRN Reason: Constipation Stop: 06/02/22 15:56 Tramadol HCl (Tramadol Hcl 50 Mg Tablet) 50 - 100 mg PO Q4H PRN PRN Reason: Moderate-Severe pain & Pre PT Stop: 06/02/22 15:56 Vitamin D (Cholecalciferol 1,000 Units 25 Mcg Tab) 2,000 units PO QPM RAUL Stop: 06/02/22 20:59 Last Admin: 05/03/22 20:25 Dose: 2,000 units Documented by:
[2022-05-04] MEDS ORDERED: DOCUSATE SODIUM 100 MG CAP PO ONE (18:18)
[2022-05-04] MEDS: CHOLECALCIFEROL 1,000 UNITS 25 MCG TAB PO SCH (21:22)
[2022-05-04] MEDS: MAGNESIUM OXIDE 400 MG TAB PO SCH (21:23)
[2022-05-04] MEDS: FAMOTIDINE 40 MG TABLET PO SCH (21:37)
[2022-05-04] MEDS: DOCUSATE SODIUM/SENNA 50/8.6MG TAB PO SCH (21:37)
[2022-05-04] MEDS: ROSUVASTATIN CALCIUM 5 MG TAB PO SCH (21:38)
[2022-05-05] MEDS: POLYETHYLENE (MIRALAX) 17 GM PACK PO SCH ×3 (00:16→12:58)
[2022-05-05] MEDS: ASCORBIC ACID 500 MG TAB PO SCH (09:15)
[2022-05-05] MEDS: FOLIC ACID 1 MG TAB PO SCH (09:15)
[2022-05-05] MEDS: PANTOprazole 40 MG TAB PO SCH (09:16)
[2022-05-05] MEDS: ASPIRIN 81 MG ECTAB PO SCH (09:16)
[2022-05-05] MEDS: hydrALAZINE TAB 50 MG TAB PO SCH ×2 (09:16→13:07)
[2022-05-05] MEDS: LEVOTHYROXINE SODIUM 100 MCG TABLET PO SCH (09:16)
[2022-05-05] MEDS: carvediloL 12.5 MG TAB PO SCH (09:16)
[2022-05-05] MEDS: LOSARTAN POTASSIUM 25 MG TAB PO SCH (09:17)
[2022-05-05] MEDS: FERROUS SULFATE 325 MG TAB PO SCH (09:17)
[2022-05-05] MEDS: CEROVITE ADV FORMULA TAB PO SCH (09:18)
[2022-05-05] MEDS: INSULIN ASPART PER UNIT SC SCH ×2 (09:18→13:09)
[2022-05-05] MEDS: dexAMETHasone 6 MG in SYRINGE 0 ML IV SCH (09:18)
[2022-05-05] MEDS: ACETAMINOPHEN 500 MG TAB PO PRN (09:37)
--- NOTE | 2022-05-05 10:24 | Hospitalist Progress Note ---
Date of Service May 05, 2022 Assessment & Plan (1) S/P spinal surgery: Plan: This is an 81-year-old female with PMH of type 2 diabetes, CAD (s/p stents 2010), CKD 3-4, anemia, hypertension, hyperlipidemia, OLE on CPAP, history of TIA, chronic back pain and other medical problems listed below who is POD#0 s/p lumbar decompression bilateral medial facetectomies foraminotomies L2-L3 L3-L4 and posterior spinal fusion L3-L4 by Dr. Chanel. POD#2 s/p lumbar decompression bilateral medial facetectomies foraminotomies L2- L3 L3-L4 and posterior spinal fusion L3-L4 by Dr. Chanel Per ortho for pain control, wound care, anticoagulation and activities continue incentive spirometry, PT/OT when appropriate Likely to be DC ed home today Acute blood loss anemia, post-op, dilutional - expected, no need for blood transfusion (pre-op hgb 11.2), currently 9.6 - cont. iron supplement Monitor H&H (2) Hypertension: Plan: Continue Carvedilol, hydralazine. Monitor BMP (3) Diabetes mellitus, type 2: Plan: A1c 7.5% Hold home agents SSI while in-patient BSG AC HS (4) Chronic kidney disease: Plan: Baseline Cr ~1.85. Avoid nephrotoxic agents. Monitor with daily BMP - Cr 1.68 today (5) CAD (coronary artery disease): Plan: S/p stents in 2010. No chest pain. Normal pre-op stress test last month with [facility] cardiology. Continue aspirin, statin, carvedilol (6) PAD (peripheral artery disease): Plan: Intervention to Left SFA in 2010. Continue aspirin, statin (7) Anxiety: Plan: Ativan PRN (8) Anemia: Plan: Pre-op hgb 11. Monitor with daily CBC. Has required blood transfusion in the past for anemia Addressed above (9) Hypothyroidism: Plan: Continue levothyroxine (10) Sleep apnea: Plan: CPAP HS PCP: Dr. Kumar Dispo: Per primary service Thank you for this consultation. We will follow the patient with you during their hospital stay. You can reach a member of the [facility] Team 19/05 via pager @ [phone]. Admission and Anticipated Discharge Date Admission Date: May 03, 2022 Subjective Patient seen in follow-up of lumbar spine surgery Currently patient is sitting up in bed, in no acute distress No fevers, chills, chest pain, shortness of breath, or abdominal pain , overall feeling quite well Ambulating, voiding without difficulty, passing gas, no BM Likely to be DC ed later today Review of Systems Review of Systems: All systems reviewed & are unremarkable except as noted in Subjective Physical Exam Physical Exam: General Appearance :WD/WN, NAD, ple asant, conversing easily Head: norm ocephalic, atrauma tic Eyes:PERRL, EOMI ENT: externa l ear and nose nor mal, oropharynx no rmal Respiratory: normal respiratory effort, lungs julia ar to auscultation , no wheeze, rales , rhonchi. No acc essory muscle use Cardiovascular: r egular rate, rhyth m, no murmur, norm al peripheral puls es, no BLE edema A bdomen/GI: normal bowel sounds, sof t, nontender Extre mities/Musculoskel etal:+Spinal dres sing c/d/i. JEVON yosi in visualized.ext remities motor str ength 5/5 Neurolog ic: PERRL, EOMI, speech fluent, no facial asymmetry, moves all extremit ies Psychiatric: A+Ox3, euthymic af fect Skin: no filiberto hes, normal color, warm/dry Results & Data Results & Data ([facility]) Vital Signs (Past 12 Hours) Vital Signs Temp Pulse Resp BP Pulse Ox 05/05/22 07:14 36.7 C 61 16 160/63 H 96 Laboratory Results 05/05/22 05/05/22 05/05/22 Range/Units 10:29 10:29 08:00 WBC 8.88 (4.8-10.8) K/ul RBC 3.18 L (3.93-5.22) M/uL Hgb 9.6 L (12.0-16.0) g/dl Hct 29.4 L (34.1-44.9) % MCV 92.5 (80.0-100.0) fL MCH 30.2 (25.0-34.0) pg MCHC 32.7 (32.0-36.0) g/dL RDW Std Deviation 43.7 (36.4-46.3) fL RDW Coeff of Chelsie 13.0 (11.5-14.5) % Plt Count 101 L (130-400) K/uL MPV 11.4 (9.4-12.3) fL Sodium 137 (136-145) mmol/L Potassium 4.5 (3.5-5.1) mmol/L Chloride 105 (98-107) mmol/L Carbon Dioxide 27 (21-32) mmol/L Anion Gap 5 (3-11) BUN 38 H (6-23) mg/dl Creatinine 1.68 H (0.6-1.2) mg/dl Est Cr Clr Drug Dosing 28.1 ml/min Est GFR ( Amer) 32.5 ml/min Est GFR (Non-Af Amer) 28.0 ml/min BUN/Creatinine Ratio 22.6 H (10-20) Glucose 135 H (70-99(Fasting)) mg/dl POC Glucose 152 H (70-99) mg/dl Calcium 8.8 (8.5-10.1) mg/dl Phosphorus 2.7 (2.5-4.9) mg/dl Magnesium 2.1 (1.7-2.4) mg/dl 05/04/22 05/04/22 05/04/22 Range/Units 20:46 16:59 12:05 WBC (4.8-10.8) K/ul RBC (3.93-5.22) M/uL Hgb (12.0-16.0) g/dl Hct (34.1-44.9) % MCV (80.0-100.0) fL MCH (25.0-34.0) pg MCHC (32.0-36.0) g/dL RDW Std Deviation (36.4-46.3) fL RDW Coeff of Chelsie (11.5-14.5) % Plt Count (130-400) K/uL MPV (9.4-12.3) fL Sodium (136-145) mmol/L Potassium (3.5-5.1) mmol/L Chloride (98-107) mmol/L Carbon Dioxide (21-32) mmol/L Anion Gap (3-11) BUN (6-23) mg/dl Creatinine (0.6-1.2) mg/dl Est Cr Clr Drug Dosing ml/min Est GFR ( Amer) ml/min Est GFR (Non-Af Amer) ml/min BUN/Creatinine Ratio (10-20) Glucose (70-99(Fasting)) mg/dl POC Glucose 171 H 211 H 162 H (70-99) mg/dl Calcium (8.5-10.1) mg/dl Phosphorus (2.5-4.9) mg/dl Magnesium (1.7-2.4) mg/dl Medications Administered Current Inpatient Medications Acetaminophen (Acetaminophen 500 Mg Tab) 1,000 mg PO Q8H PRN PRN Reason: MILD Pain Scale 1,2,3 & Pre PT Stop: 06/02/22 15:56 Last Admin: 05/05/22 09:37 Dose: 1,000 mg Documented by: Al Hydrox/Mg Hydrox/Simethicone (Aluminum/Magnesium Susp 30 Ml Udc) 30 ml PO Q6H PRN PRN Reason: Dyspepsia Stop: 06/02/22 15:56 Ascorbic Acid (Ascorbic Acid 500 Mg Tab) 250 mg PO QAM [facility] Stop: 06/03/22 08:59 Last Admin: 05/05/22 09:15 Dose: 250 mg Documented by: Aspirin (Aspirin 81 Mg Ectab) 81 mg PO QAM [facility] Stop: 06/03/22 08:59 Last Admin: 05/05/22 09:16 Dose: 81 mg Documented by: Bisacodyl (Bisacodyl 10 Mg Supp) 10 mg HI DAILY PRN PRN Reason: Constipation Stop: 06/02/22 15:56 Carvedilol (Carvedilol 12.5 Mg Tab) 12.5 mg PO BID [facility] Stop: 06/02/22 20:59 Last Admin: 05/05/22 09:16 Dose: 12.5 mg Documented by: Dextrose (Dextrose 50% 50 Ml Syringe) 25 - 50 ml IV UD PRN; Protocol PRN Reason: Hypoglycemia Protocol Stop: 06/02/22 17:21 Diphenhydramine HCl (Diphenhydramine Capsule 25 Mg Cap) 25 mg PO Q6H PRN PRN Reason: Allergic Rhinitis/Insomnia Stop: 06/02/22 15:56 Famotidine (Famotidine 40 Mg Tablet) 40 mg PO QPM [facility] Stop: 06/02/22 20:59 Last Admin: 05/04/22 21:37 Dose: 40 mg Documented by: Ferrous Sulfate (Ferrous Sulfate 325 Mg Tab) [facility] Stop: 06/03/22 08:59 Last Admin: 05/05/22 09:17 Dose: 325 mg Documented by: Folic Acid (Folic Acid 1 Mg Tab) 1 mg PO QAM [facility] Stop: 06/03/22 08:59 Last Admin: 05/05/22 09:15 Dose: 1 mg Documented by: Glucagon (Glucagon For Inj 1 Mg Vial) 1 mg SQ UD PRN; Protocol PRN Reason: Hypoglycemia Protocol Stop: 06/02/22 17:21 Glucose (Glucose 40% Gel 15 Gm Tube) 15 - 30 gm PO UD PRN; Protocol PRN Reason: Hypoglycemia Protocol Stop: 06/02/22 17:21 Glucose (Glucose 10 Tabs/Tube) 4 - 8 tab PO UD PRN; Protocol PRN Reason: Hypoglycemia Protocol Stop: 06/02/22 18:29 Hydralazine HCl (Hydralazine Tab 50 Mg Tab) 50 mg PO TID [facility] Stop: 06/02/22 15:56 Last Admin: 05/05/22 09:16 Dose: 50 mg Documented by: Hydromorphone HCl (Hydromorphone Inj 0.5 Mg/0.5 Ml Syr) 0.5 mg IV Q3H PRN PRN Reason: MODERATE Pain (Scale 4,5,6) & Pre PT Stop: 05/17/22 15:56 Hydromorphone HCl (Hydromorphone Inj 1 Mg/Ml Syringe) 1 mg IV Q3H PRN PRN Reason: SEVERE Pain (Scale 7,8,9,10) Stop: 05/17/22 15:56 Hydroxyzine HCl (Hydroxyzine Hcl 25 Mg Tab) 25 mg PO Q8H PRN PRN Reason: Anxiety Stop: 06/02/22 15:56 Promethazine HCl 12.5 mg/ (Sodium Chloride) 50.5 mls @ 202 mls/hr IV Q6H PRN PRN Reason: Nausea &/or Vomiting Stop: 06/02/22 15:56 Acetaminophen (Ofirmev) 1,000 mg in 100 mls @ 400 mls/hr IV Q8H PRN PRN Reason: Pain Rating 1-3 & Pre PT Stop: 05/06/22 15:56 Lorazepam 0.5 mg/ Syringe 0.5 mls @ 2 mls/min IV Q8H PRN PRN Reason: Sedation/Anxiety Stop: 06/02/22 15:56 Dexamethasone 6 mg/ Syringe 1.5 mls @ 1 mls/min IV DAILY [facility] Stop: 05/06/22 09:02 Last Admin: 05/05/22 09:18 Dose: 1 mls/min Documented by: Influenza Virus Vaccine Quadrival (Do Not Administer Flu Vaccine) 1 ea N/A PRN PRN PRN Reason: Notification Stop: 06/02/22 15:56 Insulin Aspart (Insulin Aspart Per Unit) 0 units SC ACHS [facility] Stop: 06/02/22 17:49 Last Admin: 05/05/22 09:18 Dose: 1 units Documented by: Levothyroxine Sodium (Levothyroxine Sodium 100 Mcg Tablet) 100 mcg PO QAM [facility] Stop: 06/03/22 08:59 Last Admin: 05/05/22 09:16 Dose: 100 mcg Documented by: Lorazepam (Lorazepam 0.5 Mg Tab) 0.5 mg PO Q8H PRN PRN Reason: Sedation/Anxiety Stop: 06/02/22 15:56 Losartan Potassium (Losartan Potassium 25 Mg Tab) 25 mg PO BID [facility] Stop: 06/03/22 08:59 Last Admin: 05/05/22 09:17 Dose: 25 mg Documented by: Magnesium Hydroxide (Magnesium Hydroxide Susp 30 Ml Udc) 30 ml PO Q24H PRN PRN Reason: Constipation Stop: 06/02/22 15:56 Last Admin: 05/05/22 09:22 Dose: 30 ml Documented by: Magnesium Oxide (Magnesium Oxide 400 Mg Tab) 200 mg PO QPM [facility] Stop: 06/02/22 20:59 Last Admin: 05/04/22 21:23 Dose: 200 mg Documented by: Metoclopramide HCl (Metoclopramide Hcl Inj 5 Mg/Ml 2 Ml Vial) 10 mg IV Q6H PRN PRN Reason: Nausea &/or Vomiting Stop: 06/02/22 15:56 Miscellaneous (Carbohydrates For Hypoglycemia ) 15 - 30 gm PO UD PRN PRN Reason: Hypoglycemia Protocol Stop: 06/02/22 17:21 Multivitamins/Minerals (Cerovite Adv Formula Tab) 1 tab PO QAM [facility] Stop: 06/03/22 08:59 Last Admin: 05/05/22 09:18 Dose: 1 tab Documented by: Naloxone HCl (Naloxone Hcl 0.4 Mg/1 Ml Vial/Carp) 0.1 mg IV Q5M PRN PRN Reason: Oversedation/Resp depression Stop: 06/02/22 15:56 Ondansetron HCl (Ondansetron Inj 2 Mg/Ml 2 Ml Vial) 4 mg IV Q6H PRN PRN Reason: Nausea &/or Vomiting Stop: 06/02/22 15:56 Last Admin: 05/03/22 16:19 Dose: 4 mg Documented by: Ondansetron HCl (Ondansetron 4 Mg Od Tab) 4 mg PO Q6H PRN PRN Reason: Nausea Stop: 06/02/22 15:56 Oxycodone HCl (Oxycodone Hcl Ir 5 Mg Tab (Immediate Release)) 5 - 10 mg PO Q4H PRN PRN Reason: Pain & Pre PT Stop: 05/17/22 15:56 Last Admin: 05/04/22 19:59 Dose: 5 mg Documented by: Pantoprazole Sodium (Pantoprazole 40 Mg Tab) 40 mg PO QAM [facility] Stop: 06/03/22 08:59 Last Admin: 05/05/22 09:16 Dose: 40 mg Documented by: Pneumococcal Polyvalent Vaccine (Do Not Administer Pneumococcal Vaccine) 1 ea N/A PRN PRN PRN Reason: Notification Stop: 06/02/22 15:56 Polyethylene Glycol (Polyethylene (Miralax) 17 Gm Pack) 17 gm PO Q6 [facility] Stop: 06/03/22 05:59 Last Admin: 05/05/22 05:46 Dose: Not Given Documented by: Rosuvastatin Calcium (Rosuvastatin Calcium 5 Mg Tab) 5 mg PO QPM [facility] Stop: 06/02/22 20:59 Last Admin: 05/04/22 21:38 Dose: 5 mg Documented by: Senna/Docusate Sodium (Docusate Sodium/Senna 50/8.6mg Tab) 2 tab PO HS [facility] Stop: 06/02/22 20:59 Last Admin: 05/04/22 21:37 Dose: Not Given Documented by: Sodium Biphosphate/Sodium Phosphate (Sod Phosphate/Sod Biphosphate Enema 132 Ml Btl) 132 ml HI ONE PRN PRN Reason: Constipation Stop: 06/02/22 15:56 Tramadol HCl (Tramadol Hcl 50 Mg Tablet) 50 - 100 mg PO Q4H PRN PRN Reason: Moderate-Severe pain & Pre PT Stop: 06/02/22 15:56 Vitamin D (Cholecalciferol 1,000 Units 25 Mcg Tab) 2,000 units PO QPM [facility] Stop: 06/02/22 20:59 Last Admin: 05/04/22 21:22 Dose: 2,000 units Documented by:
--- NOTE | 2022-05-05 10:29 | Discharge Summary ---
Date of Service May 05, 2022 Admission HPI Per Admitting Provider This is an 81-year-old female presents with chronic persistent back and leg pain. Failing course of nonoperative care she is here for surgical intervention. Principal Diagnosis Lumbar spinal stenosis with neurogenic claudication Discharge Data Allergies Allergy/AdvReac Type Severity Reaction Status Date / Time No Known Allergies Allergy Verified 05/03/22 10:16 Consultations 05/03/22 15:57 Consult Hospitalist Routine Procedures Performed Operation Date: 05/03/22 11:35 Actual Procedures p L3-L4 Decompression Fusion, Spinal Cord Monitoring(Not Applicable) - Cristhian Chanel DO Ordered Studies 05/03/22 11:35 FL lumbar spine 2-3V Routine Hospital Course (1) Neurogenic claudication due to lumbar spinal stenosis: Patient went lumbar decompression fusion tolerated this well second or thopedic for postoperative postop and when she was up and ambulating but is progressed to postop day #2. She lacks strength testing JEVON drain decreased probably. Pain well controlled. Separately discharged home. Discharge orders instructions from the chart for further review. Total Time Total Time Spent Total Time Spent (In Minutes): 20 minutes Discharge Plan Discharge Items Patient Disposition: Home - Self-Care Reason For Visit: Spinal Stenosis, Lumbar Region with Neurogenic Discharge Diagnosis: Lumbar spinal stenosis with neurogenic claudication Activity: As commented below Non-emergency contact: Primary Care Provider Call non-emergency contact if: you have any medication questions Follow-up/Referrals: Conchis Kumar CRNP [Primary Care Provider] - Diet: Regular Addtl Attending Provider Instructions: ACTIVITY RECOMMENDATIONS: SELF CARE INSTRUCTIONS AFTER THORACIC/LUMBAR FUSIONS 1. You may walk to your tolerance. It is good exercise for your legs and back. Expect some back and intermittent leg aches and pains. 2. You may perform "counter-top" level activities (make a sandwich, merline with a project, etc.). 3. No bending or lifting of more than 10 pounds or back twisting of any nature (roll like a log when turning in bed). 4. You may ride in a car for 20-30 minutes at a time. No driving until after your first visit with your doctor. 5. Frequent changes of position and restricting sitting to 30 minutes at a time will help limit the amount of back spasms and stiffness you may experience. 6. You may discontinue the use of ambulatory aids (cane, crutches, etc.) once your strength and confidence allow. 7. You may lean engineer the shower and let water strike your incision when you arrive home at least once daily. Do not take a tub bath, sit in a hot tub or go into a swimming pool until after your first recheck in the office. SPECIAL CARE INSTRUCTIONS: VERY IMPORTANT TO READ AND REVIEW A. Your surgical incision has been closed with a cosmetic suture under the skin that will dissolve in about 6 weeks. In 14 days, you can use a pair of clean scissors and cut the suture that is left outside of the skin at the ends of your incision. 1. The small skin tapes can be removed 7 days after surgery if they have not fallen off by that point. 2. You may keep the wound open to air as much as possible to promote healing after post-op day number 5 unless told otherwise by your doctor. 3. If you think the wound looks like it is becoming infected (redness or worsening drainage) and/or you are experiencing fever, chill or worsening back pain and muscle spasms, contact the office so that we may evaluate you as soon as possible. B. Complications are uncommon, but please contact us if you have any signs or symptoms of: 1. wound infection (fever higher than 102.5 degrees F, redness, separation of wound, drainage, or increasing pain from the incision) 2. blood clots in legs (pain, swelling, redness and warmth in legs) 3. urinary tract infection (fever higher than 102.5 degrees F, burning upon urination or increased frequency of urination) 4. nerve problems (inability to walk on your toes or heels, numbness, loss of bowel or bladder control) 5. any other symptoms that concern you C. Please call the office at if you have any concerns or questions about your operation or recovery. D. No smoking! Smoking drastically decreases the chance of a solid fusion. E. Do not take any anti-inflammatory medications (Indocin, Advil, Motrin, Aspirin, Naprosyn, etc.) as these may inhibit the chance of a solid fusion. Tylenol is okay to take for pain. MANAGING PAIN AFTER SPINAL SURGERY 1. Narcotic medication is intended for short-term use and will be provided for surgical pain. Surgical pain usually lasts for a period of 4-6 weeks. Narcotic medication includes Percocet, Vicodin, Darvocet, Tylenol #3 or Lortab. 2. Longer-term pain is more appropriately treated with non-narcotic medication such as Tylenol ES. 3. Muscle spasm is not appropriately treated with narcotics. Muscle relaxers such as Soma, Flexeril or Skelaxin can be used along with Tylenol ES. 4. Remember that we all live with some "aches and pains". This is not unusual or uncommon after an injury or as we get older. a. Back pain is expected and may include muscle spasms for 4 to 6 weeks after surgery. The pain should gradually improve. If the pain worsens for no apparent reason, please contact the office. b. Intermittent leg pain may also be experienced and should not be concerned about unless it worsens for no apparent reason. If so, please contact the office. 5. We will provide appropriate medication within the normal guidelines of their prescribed use. We will also be very cautious and aware of potential abuse and extended duration of patients' medication needs. a. Pain medications are for your comfort and to assist with sleep and rest so that the tissue can heal. They are not provided in order to return to normal activity and should not be used through the day. To do so or worsening pain at night can result from ongoing tissue damage and development of tolerance to the prescribed medicine. 6. Please allow 2-3 days to process refills. Prescriptions will not be mailed but must be picked up at the office. FOLLOW UP VISIT: Keep your scheduled follow-up appointment. Any questions, please call the office at . Pending Studies at Discharge: No Stand-Alone Forms: My [facility] beRecruited, Smoking Cessation Medications and DC Order Prescriptions: New tramadol 50 mg tablet 50 mg PO Q6H PRN (Reason: pain, moderate) Qty: 30 RF: 0 oxycodone 5 mg tablet 5 mg PO Q6H PRN (Reason: pain, severe) Qty: 30 RF: 0 Continued carvedilol 12.5 mg Tablet 12.5 mg PO BID RF: 0 famotidine 40 mg Tablet 40 mg PO QPM RF: 0 pantoprazole 20 mg Tablet,Delayed Release (Dr/Ec) 20 mg PO QAM RF: 0 levothyroxine [Synthroid] 100 mcg Tablet 100 mcg PO QAM RF: 0 lorazepam 0.5 mg Tablet 0.5 mg PO DAILY PRN (Reason: Anxiety) RF: 0 losartan 25 mg Tablet 25 mg PO BID RF: 0 folic acid 1 mg Tablet 1 mg PO QAM RF: 0 hydralazine 50 mg Tablet 50 mg PO TID RF: 0 magnesium oxide 250 mg magnesium Tablet 250 mg PO QPM RF: 0 [id number] Tablet 1 tab PO QAM RF: 0 rosuvastatin [Crestor] 5 mg Tablet 5 mg PO QPM RF: 0 cholecalciferol (vitamin D3) [Vitamin D3] 50 mcg (2,000 unit) Tablet 50 mcg PO QPM RF: 0 Vitron-C 65 mg iron- 125 mg Tablet,Delayed Release (Dr/Ec) 1 tab PO QAM RF: 0 aspirin 81 mg Capsule 81 mg PO QAM RF: 0 glyburide 2.5 mg Tablet 2.5 mg PO QAM RF: 0 Discharge Orders: Discharge Order (Routine); Ordered 05/05/22 Ordered By: Cristhian Chanel Admission Data Admit Date/Time: 05/03/22 13:29 Attending Provider: Cristhian Chanel Admit Provider: Cristhian Chanel Primary Care Provider: Conchis Kumar Other Providers: rTae Tee
[2022-05-05 10:41] LABS: Hematocrit (blood only) 29.4 % (34.1-44.9); Hemoglobin 9.6 g/dl (12.0-16.0); Mean Corpuscular Hemoglobin 30.2 pg (25.0-34.0); Mean Corpuscular Hgb Conc 32.7 g/dL (32.0-36.0); Mean Corpuscular Volume 92.5 fL (80.0-100.0); Mean Platelet Volume 11.4 fL (9.4-12.3); Platelet Count 101 K/uL (130-400); RDW Standard Deviation 43.7 fL (36.4-46.3); Red Blood Count 3.18 M/uL (3.93-5.22); White Blood Count 8.88 K/ul (4.8-10.8)
[2022-05-05 11:02] LABS: BUN Creatinine Ratio 22.6 (10-20); Calcium 8.8 mg/dl (8.5-10.1); Creatinine Clr Calc Pharmacy 28.1 ml/min; Est GFR (African American) 32.5 ml/min; Magnesium 2.1 mg/dl (1.7-2.4); Phosphorus 2.7 mg/dl (2.5-4.9); Potassium 4.5 mmol/L (3.5-5.1)
[2022-05-05] MEDS ORDERED: LORATADINE 10 MG TAB PO ONE (11:12)
[2022-05-05] MEDS: oxyCODONE HCL IR 5 MG TAB (IMMEDIATE RELEASE) PO PRN (13:07)
== END 2022-05-05 14:06 | disposition home or self-care (01) | DRG 454 ==
LOC: ASU 09:32 → 3E 13:29

== ENCOUNTER 2022-11-19 15:52 | Inpatient (IN) ==
[2022-11-19 17:22] LABS: Basophils # (auto) 0.06 K/uL (0-0.2); Basophils % (auto) 0.9 %; Eosinophils # (auto) 0.25 K/uL (0-0.50); Eosinophils % (auto) 3.8 %; Hematocrit (blood only) 33.8 % (34.1-44.9); Immature Granulocytes # (auto) 0.02 K/uL (0.00-0.02); Immature Granulocytes % (auto) 0.3 %; Lymphocytes % (auto) 22.9 %; Mean Corpuscular Hgb Conc 32.5 g/dL (32.0-36.0); Mean Corpuscular Volume 92.1 fL (80.0-100.0); Monocytes # (auto) 0.64 K/uL (0.24-0.82); Monocytes % (auto) 9.8 %; Neutrophils # (auto) 4.07 K/uL (1.4-6.5); Neutrophils % (auto) 62.3 %; Platelet Count 140 K/uL (130-400); RDW Coefficient of Variation 13.9 % (11.5-14.5); Red Blood Count 3.67 M/uL (3.93-5.22); White Blood Count 6.54 K/ul (4.8-10.8)
[2022-11-19 17:38] LABS: Albumin Globulin Ratio 1.4 (0.9-2); Albumin Level 3.8 gm/dl (3.4-5.0); BUN Creatinine Ratio 16.4 (10-20); Bilirubin,Total 0.7 mg/dl (0.2-1.0); Calcium 9.4 mg/dl (8.5-10.1); Est GFR (African American) 32.9 ml/min; Est GFR (Non-African American) 28.4 ml/min; Globulin 2.7 gm/dl (2.5-4.0); Magnesium 1.9 mg/dl (1.7-2.4); Potassium 4.5 mmol/L (3.5-5.1); Total Protein 6.5 gm/dl (6.0-8.3)
[2022-11-19 17:44] LABS: Troponin I High Sensitivity 15.1 pg/ml (0-14)
[2022-11-19 17:52] LABS: Partial Thromboplastin Time 28.1 Seconds (21.0-31.0); Prothrombin Time 11.1 Seconds (9.0-12.0)
[2022-11-19] MEDS ORDERED: SODIUM CHLORIDE 0.9% 1000ML 500 ML IV ONE (19:20)
[2022-11-19] MEDS ORDERED: OPTIRAY 320 500ml IV ONE (19:49)
--- NOTE | 2022-11-19 20:22 | CT Scan Report ---
CT angio neck with con, CT angio head w con, CT head/brain wo con CLINICAL HISTORY: neuro deficit, acute stroke suspected TECHNIQUE: Contiguous axial CT images of the head were acquired from the base of the skull to the vikram robert without intravenous contrast administration. CT angiography of the head and neck was performed f ollowing intravenous administration of iodinated contrast. Coronal and sagittal MIPS were obtained fr om the axial data set and were submitted for review. Automated dose lowering techniques and/or adjus tment according to patient size were utilized for this examination. All measurements were calculated based on NASCET criteria. CT DOSE: 1010.77 mGy.cm Comparison: None available at the time of this dictation. FINDINGS: CT head: There is no acute intracranial hemorrhage or evidence of acute territorial infarction. No sh ift of the midline structures, mass effect, or extra-axial abnormalities are shown. The thyroid is not seen. Biapical scarring is seen. CTA Neck: A 3 vessel aortic arch is shown. Retropharyngeal course of the internal carotid arteries n oted. Atherosclerotic plaque is present in the aortic arch and at the origin of the great vessels. T here is mild calcified atherosclerotic plaque at the bifurcation of the left common carotid artery wi thout hemodynamically significant flow stenosis. There is no dissection present. The left vertebral a rtery is dominant. CTA Head: The anterior and posterior cerebral circulations are patent. No hemodynamically significan t stenosis, aneurysm, dissection, or arteriovenous malformation is shown. The right A1 segment appear s absent and the anterior cerebral arteries are both supplied from the left RYLEE. origin of the right [employer] is noted. IMPRESSION: 1. No acute intracranial hemorrhage, evidence of acute territorial infarction, or other acute intrac ranial disease process. 2. No occlusion, hemodynamically significant stenosis, or dissection in the major cervical arteries. 3. No occlusion, hemodynamically significant stenosis, aneurysm, dissection, or arteriovenous malfor mation in the major intracranial arteries. Assessment of stenosis of the internal carotid arteries is based on NASCET criteria. ACT 112: Negative or not required by law. Electronically signed by: James Moreira M.D. 11/19/2022 8:19 PM
--- NOTE | 2022-11-19 20:29 | Emergency Department Note ---
Impression & Plan Acute CVA (cerebrovascular accident), Hypertension, Anemia, Acute retinal artery occlusion, Elevated troponin ED Provider Note NAME: IALEEN BEARD AGE: 82 SEX: F : 1940 ARRIVES VIA: Walk-In INFORMANT: [Patient][friend] ED PROVIDER(S): [Edwardo Peres MD] CHIEF COMPLAINT: Abnormal testing HISTORY OF PRESENT ILLNESS: The patient is an 82-year-old female who presents to the ER with lost vision in her right eye for 2 days. The patient woke up yesterday morning and could not see out of the right eye. She saw her eye doctor who referred her to a retinal specialist. Today, she was told that she had suffered a stroke to the back of the right eye and that she should present to the hospital for a stroke work-up. She has no history of stroke although she does take aspirin for cardiac reasons. The patient has not had facial drooping or speech slur. No extremity weakness or stumbling or clumsiness. No chest pain or shortness of breath, no cough or cold or congestion. PMHx/PSHx: See Below SOCIAL HISTORY: See Below. PHYSICAL EXAM: GENERAL: Patient is in no acute distress. HEENT: No acute trauma, normocephalic atraumatic, mucous membranes moist, no nasal congestion. Can see very little light out of the right eye. NECK: No stridor, no adenopathy, no meningismus, trachea is midline. LUNGS: Clear to auscultation bilaterally, no wheeze, no rhonchi, breath sounds equal. HEART: Without murmurs gallops or rubs, regular rate and rhythm. ABDOMEN: Soft, nontender, bowel sounds positive, no peritonitis. EXTREMITIES: No cyanosis, mild bilateral pedal edema, full range of motion of all the joints without pain or difficulty, no signs for acute trauma. NEUROLOGIC: Oriented x 3, no acute motor or sensory deficits, no focal weakness. No speech slur or facial droop, no extremity drift or cerebellar dysfunction. SKIN: No rash, no jaundice, no diaphoresis. DIFFERENTIAL DIAGNOSIS: Infection, UTI, dehydration, metabolic abnormality, hypo/hyperglycemia, electrolyte disturbance, anemia, hypoxia, cardiac sources, intracerebral event, toxicologic issues, stroke, TIA, as well as other pathologies. EMERGENCY DEPARTMENT COURSE/PROCEDURES: Prior/Outside records reviewed: Retinal specialist report. ECG per my interpretation: Indication was a possible stroke. ECG shows a normal sinus rhythm with a rate of 64. There is some nonspecific ST change diffusely. No ST elevation, no PVCs. The QTc is 408. Continuous Cardiac Monitoring per my interpretation: An order was placed for continuous cardiac monitoring. The monitor shows a rate of 67 with normal sinus rhythm. Critical Care Note: I have personally spent 42 minutes of critical care time in the direct management of this patient. This includes bedside care, interpretation of diagnostic studies, and testing, discussion with consultants, patient, and family members, and other required patient management activities. This 42 minutes is in excess of all separately billable procedures. MEDICAL DECISION MAKING: There is no leukocytosis. A mild anemia was seen. There was a normal platelet count. No coagulopathy. There was some renal insufficiency noted with a creatinine of 1.65. This value appears baseline for the patient when looking back at previous testing. There was no concerning liver enzyme elevation. ECG showed a sinus rhythm, no obvious ischemia. Cardiac troponin was slightly elevated. This elevation could be from cardiac injury or potentially mismatch. Brain CT showed no acute bleed or mass-effect. CT angio of the head and neck were performed, no clot or stenosis seen. 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 She had no extremity weakness or speech slur noted. Patient technically has had a small CVA. Further stroke work-up is warranted. She was hypertensive here in the ED but had missed her nighttime BP meds. She received oral carvedilol, oral hydralazine and oral losartan. She was given a 500 cc saline bolus. I did speak with the patient as well as case management, the on-call hospitalist was consulted. DISPOSITION: Patient's findings and presentation warrant a hospital stay. Past Med/Surg History Medical History Anemia Hx - taking iron, transfusion 2015 Anxiety Arthritis Right hip CAD (coronary artery disease) S/p stents to diagonal and circumflex 2010 Borderline significant distal Cx disease, not amendable to stenting, moderate nonobstructive CAD otherwise Carotid stenosis Nonobstructive/bilateral per cardio records Less than 50% stenosis bilaterally per carotid doppler 2019 per 08/2021 cardio note Chronic kidney disease Stage III Diabetes mellitus, type 2 NIDDM GERD (gastroesophageal reflux disease) Well controlled and stable Hyperlipidemia Pt denies- states she is on statin for maintenance Hypertension Hypothyroidism PAD (peripheral artery disease) S/p left SFA atherectomy, 2010 Sleep apnea cpap TIA (transient ischemic attack) 2007 per cardio records Surgical History (Updated 05/03/22 @ 17:19 by Sheila Tristan PA-C) History of appendectomy History of cardiac cath 02/2011 and 03/2011 Dr. Montano - stents placed History of cholecystectomy History of colonoscopy History of heart artery stent 03/01/2011 04/10/2011 - pt didn't feel right - went to doctor - had stress test - found blockage - Dr. Montano placed - Follows [facility] History of right hip replacement Hx of bilateral cataract extraction Family History (Updated 05/03/22 @ 17:17 by Sheila Tristan PA-C) Sister Diabetes Other Heart disease Social History Smoking Status: Never smoker Second Hand Exposure: No; Hx Alcohol Use: No Hx Substance Use: No Preferred Language: Greenlandic Communication Ability: Effective Experimental [employer] Required: No Beliefs That Will Affect Care: None marital status: Unknown Current Living Situation: Alone Feels Safe at Home: Yes Assistive Devices: Cane and Walker Allergies Allergies Allergy/AdvReac Type Severity Reaction Status Date / Time No Known Allergies Allergy Verified 11/19/22 21:03 Home Meds Home Medications Medication Instructions Recorded Confirmed aspirin 81 mg capsule 81 mg PO QAM 04/10/22 11/19/22 carvedilol 12.5 mg tablet 12.5 mg PO BID 04/10/22 11/19/22 cholecalciferol (vitamin D3) 50 50 mcg PO QPM 04/10/22 11/19/22 mcg (2,000 unit) tablet (Vitamin D3) famotidine 40 mg tablet 40 mg PO QPM 04/10/22 11/19/22 folic acid 1 mg tablet 1 mg PO QAM 04/10/22 11/19/22 glyburide 2.5 mg tablet 2.5 mg PO QAM 04/10/22 11/19/22 hydralazine 50 mg tablet 50 mg PO TID 04/10/22 11/19/22 iron,carbonyl 65 mg-vitamin C 125 1 tab PO QAM 04/10/22 11/19/22 mg tablet,delayed release (Vitron-C) levothyroxine 100 mcg tablet 100 mcg PO QAM 04/10/22 11/19/22 (Synthroid) lorazepam 0.5 mg tablet 0.5 mg PO DAILY PRN Anxiety 04/10/22 11/19/22 losartan 25 mg tablet 25 mg PO BID 04/10/22 11/19/22 magnesium oxide 250 mg PO QPM 04/10/22 11/19/22 [id number] tablet 1 tab PO QAM 04/10/22 11/19/22 pantoprazole 20 mg tablet,delayed 20 mg PO QAM 04/10/22 11/19/22 release rosuvastatin 5 mg tablet (Crestor) 5 mg PO QPM 04/10/22 11/19/22 Results & Data (ED) Vital Signs Vital Signs - 24 hr 11/19/22 16:06 11/19/22 20:37 Temperature 37.0 C Temperature Source Temporal Artery Scan Pulse Rate 67 Pulse Rate [Finger] 65 Pulse Rhythm Regular Pulse Rhythm [Finger] Regular Pulse Strength Normal Pulse Strength [Finger] Normal Respiratory Rate 18 20 Respiratory Effort / Characteristics Non-Labored Non-Labored Spontaneous Respiratory Depth Normal Normal Respiratory Pattern Regular Regular Blood Pressure 189/71 H Blood Pressure [Right Arm] 159/114 H Blood Pressure Mean 110 Blood Pressure Mean [Right Arm] 129 Blood Pressure Position Sitting Blood Pressure Position [Right Arm] Lying Pulse Oximetry 97 93 Oxygen Delivery Method Room Air Room Air Sepsis Recent Fever Within 48 Hours No Sepsis New/Unexplained Change in Mental Status N/A Sepsis Action Taken by Nursing No Action Required Home Medications Current Medication List: was personally reviewed by me Laboratory Data Attestation: I reviewed the patient's lab results. 11/19/22 16:40 11/19/22 16:40 Lab Results 11/19/22 11/19/22 11/19/22 Range/Units 16:40 16:40 16:40 WBC 6.54 (4.8-10.8) K/ul RBC 3.67 L (3.93-5.22) M/uL Hgb 11.0 L (12.0-16.0) g/dl Hct 33.8 L (34.1-44.9) % MCV 92.1 (80.0-100.0) fL MCH 30.0 (25.0-34.0) pg MCHC 32.5 (32.0-36.0) g/dL RDW Std Deviation 47.0 H (36.4-46.3) fL RDW Coeff of Chelsie 13.9 (11.5-14.5) % Plt Count 140 (130-400) K/uL MPV 11.0 (9.4-12.3) fL Immature Gran % (Auto) 0.3 % Neut % (Auto) 62.3 % Lymph % (Auto) 22.9 % Wythe % (Auto) 9.8 % Eos % (Auto) 3.8 % Baso % (Auto) 0.9 % Neut # (Auto) 4.07 (1.4-6.5) K/uL Lymph # (Auto) 1.50 (1.2-3.4) K/uL Wythe # (Auto) 0.64 (0.24-0.82) K/uL Eos # (Auto) 0.25 (0-0.50) K/uL Baso # (Auto) 0.06 (0-0.2) K/uL Immature Gran # (Auto) 0.02 (0.00-0.02) K/uL PT 11.1 (9.0-12.0) Seconds INR 1.0 (0.9-1.1) APTT 28.1 (21.0-31.0) Seconds PTT Ratio 1.0 Sodium 143 (136-145) mmol/L Potassium 4.5 (3.5-5.1) mmol/L Chloride 108 H (98-107) mmol/L Carbon Dioxide 30 (21-32) mmol/L Anion Gap 5 (3-11) BUN 27 H (6-23) mg/dl Creatinine 1.65 H (0.6-1.2) mg/dl Est Cr Clr Drug Dosing 28.0 ml/min Est GFR ( Amer) 32.9 ml/min Est GFR (Non-Af Amer) 28.4 ml/min BUN/Creatinine Ratio 16.4 (10-20) Glucose 104 H (70-99(Fasting)) mg/dl Calcium 9.4 (8.5-10.1) mg/dl Magnesium 1.9 (1.7-2.4) mg/dl Total Bilirubin 0.7 (0.2-1.0) mg/dl AST 17 (13-39) U/L ALT 11 (7-52) U/L Alkaline Phosphatase 79 (34-104) U/L Troponin I High Sens 15.1 H (0-14) pg/ml Total Protein 6.5 (6.0-8.3) gm/dl Albumin 3.8 (3.4-5.0) gm/dl Globulin 2.7 (2.5-4.0) gm/dl Albumin/Globulin Ratio 1.4 (0.9-2) Blood Type Antibody Screen 11/19/22 Range/Units 20:03 WBC (4.8-10.8) K/ul RBC (3.93-5.22) M/uL Hgb (12.0-16.0) g/dl Hct (34.1-44.9) % MCV (80.0-100.0) fL MCH (25.0-34.0) pg MCHC (32.0-36.0) g/dL RDW Std Deviation (36.4-46.3) fL RDW Coeff of Chelsie (11.5-14.5) % Plt Count (130-400) K/uL MPV (9.4-12.3) fL Immature Gran % (Auto) % Neut % (Auto) % Lymph % (Auto) % Wythe % (Auto) % Eos % (Auto) % Baso % (Auto) % Neut # (Auto) (1.4-6.5) K/uL Lymph # (Auto) (1.2-3.4) K/uL Wythe # (Auto) (0.24-0.82) K/uL Eos # (Auto) (0-0.50) K/uL Baso # (Auto) (0-0.2) K/uL Immature Gran # (Auto) (0.00-0.02) K/uL PT (9.0-12.0) Seconds INR (0.9-1.1) APTT (21.0-31.0) Seconds PTT Ratio Sodium (136-145) mmol/L Potassium (3.5-5.1) mmol/L Chloride (98-107) mmol/L Carbon Dioxide (21-32) mmol/L Anion Gap (3-11) BUN (6-23) mg/dl Creatinine (0.6-1.2) mg/dl Est Cr Clr Drug Dosing ml/min Est GFR ( Amer) ml/min Est GFR (Non-Af Amer) ml/min BUN/Creatinine Ratio (10-20) Glucose (70-99(Fasting)) mg/dl Calcium (8.5-10.1) mg/dl Magnesium (1.7-2.4) mg/dl Total Bilirubin (0.2-1.0) mg/dl AST (13-39) U/L ALT (7-52) U/L Alkaline Phosphatase (34-104) U/L Troponin I High Sens (0-14) pg/ml Total Protein (6.0-8.3) gm/dl Albumin (3.4-5.0) gm/dl Globulin (2.5-4.0) gm/dl Albumin/Globulin Ratio (0.9-2) Blood Type O Positive Antibody Screen NEGATIVE Administered Medications Discontinued Medications Carvedilol (Carvedilol 12.5 Mg Tab) 12.5 mg PO NOW ONE Stop: 11/19/22 20:48 Last Admin: 11/19/22 21:22 Dose: 12.5 mg Documented By: [id number] Hydralazine HCl (Hydralazine Tab 50 Mg Tab) 50 mg PO NOW STA Stop: 11/19/22 20:48 Last Admin: 11/19/22 21:23 Dose: 50 mg Documented By: [id number] Sodium Chloride (Nss 1000ml) 500 mls @ 999 mls/hr IV .Q31M ONE Stop: 11/19/22 19:50 Last Admin: 11/19/22 20:05 Dose: 999 mls/hr Documented By: [id number] Ioversol (Optiray 320 500ml) 113 ml IV ONCE ONE Stop: 11/19/22 19:50 Last Admin: 11/19/22 19:49 Dose: 113 ml Documented By: [email or web address] Losartan Potassium (Losartan Potassium 25 Mg Tab) 25 mg PO NOW STA Stop: 11/19/22 20:48 Last Admin: 11/19/22 21:24 Dose: 25 mg Documented By: [id number] Imaging Data Radiologist's Impression: Head CT 11/19/22 16:16 CT angio neck with con, CT angio head w con, CT head/brain wo con CLINICAL HISTORY: neuro deficit, acute stroke suspected TECHNIQUE: Contiguous axial CT images of the head were acquired from the base of the skull to the vertex without intravenous contrast administration. CT angiography of the head and neck was performed following intravenous adm inistration of iodinated contrast. Coronal and sagittal MIPS were obtained from the axial data set and were submitted for review. Automated dose lowering techniques and/or adjustment according to patient size were utilized for this examination. All measurements were calculated based on NASCET criteria. CT DOSE: 1010.77 mGy.cm Comparison: None available at the time of this dictation. FINDINGS: CT head: There is no acute intracranial hemorrhage or evidence of acute territorial infarction. No shift of the midline structures, mass effect, or extra-axial abnormalities are shown. The thyroid is not seen. Biapical scarring is seen. CTA Neck: A 3 vessel aortic arch is shown. Retropharyngeal course of the internal carotid arteries noted. Atherosclerotic plaque is present in the aortic arch and at the origin of the great vessels. There is mild calcified atherosclerotic plaque at the bifurcation of the left common carotid artery without hemodynamically significant flow stenosis. There is no dissection present. The left vertebral artery is dominant. CTA Head: The anterior and posterior cerebral circulations are patent. No hemodynamically significant stenosis, aneurysm, dissection, or arteriovenous malformation is shown. The right A1 segment appears absent and the anterior cerebral arteries are both supplied from the left RYLEE. origin of the right LOCK ASSEMBLER is noted. IMPRESSION: 1. No acute intracranial hemorrhage, evidence of acute territorial infarction, or other acute intracranial disease process. 2. No occlusion, hemodynamically significant stenosis, or dissection in the major cervical arteries. 3. No occlusion, hemodynamically significant stenosis, aneurysm, dissection, or arteriovenous malformation in the major intracranial arteries. Assessment of stenosis of the internal carotid arteries is based on NASCET criteria. ACT 112: Negative or not required by law. Electronically signed by: James Moreira M.D. 11/19/2022 8:19 PM Head CTA 11/19/22 16:16 CT angio neck with con, CT angio head w con, CT head/brain wo con CLINICAL HISTORY: neuro deficit, acute stroke suspected TECHNIQUE: Contiguous axial CT images of the head were acquired from the base of the skull to the vertex without intravenous contrast administration. CT angiography of the head and neck was performed following intravenous administration of iodinated contrast. Coronal and sagittal MIPS were obtained from the axial data set and were submitted for review. Automated dose lowering techniques and/or adjustment according to patient size were utilized for this examination. All measurements were calculated based on NASCET criteria. CT DOSE: 1010.77 mGy.cm Comparison: None available at the time of this dictation. FINDINGS: CT head: There is no acute intracranial hemorrhage or evidence of acute territorial infarction. No shift of the midline structures, mass effect, or extra-axial abnormalities are shown. The thyroid is not seen. Biapical scarring is seen. CTA Neck: A 3 vessel aortic arch is shown. Retropharyngeal course of the internal carotid arteries noted. Atherosclerotic plaque is present in the aortic arch and at the origin of the great vessels. There is mild calcified atherosclerotic plaque at the bifurcation of the left common carotid artery without hemodynamically significant flow stenosis. There is no dissection present. The left vertebral artery is dominant. CTA Head: The anterior and posterior cerebral circulations are patent. No hemodynamically significant stenosis, aneurysm, dissection, or arteriovenous malformation is shown. The right A1 segment appears absent and the anterior cerebral arteries are both supplied from the left RYLEE. origin of the right LOCK ASSEMBLER is noted. IMPRESSION: 1. No acute intracranial hemorrhage, evidence of acute territorial infarction, or other acute intracranial disease process. 2. No occlusion, hemodynamically significant stenosis, or dissection in the major cervical arteries. 3. No occlusion, hemodynamically significant stenosis, aneurysm, dissection, or arteriovenous malformation in the major intracranial arteries. Assessment of stenosis of the internal carotid arteries is based on NASCET criteria. ACT 112: Negative or not required by law. Electronically signed by: James Moreira M.D. 11/19/2022 8:19 PM Neck CTA 11/19/22 16:16 CT angio neck with con, CT angio head w con, CT head/brain wo con CLINICAL HISTORY: neuro deficit, acute stroke suspected TECHNIQUE: Contiguous axial CT images of the head were acquired from the base of the skull to the vertex without intravenous contrast administration. CT angiography of the head and neck was performed following intravenous administration of iodinated contrast. Coronal and sagittal MIPS were obtained from the axial data set and were submitted for review. Automated dose lowering techniques and/or adjustment according to patient size were utilized for this examination. All measurements were calculated based on NASCET criteria. CT DOSE: 1010.77 mGy.cm Comparison: None available at the time of this dictation. FINDINGS: CT head: There is no acute intracranial hemorrhage or evidence of acute terr itorial infarction. No shift of the midline structures, mass effect, or extra- axial abnormalities are shown. The thyroid is not seen. Biapical scarring is seen. CTA Neck: A 3 vessel aortic arch is shown. Retropharyngeal course of the internal carotid arteries noted. Atherosclerotic plaque is present in the aortic arch and at the origin of the great vessels. There is mild calcified atherosclerotic plaque at the bifurcation of the left common carotid artery without hemodynamically significant flow stenosis. There is no dissection present. The left vertebral artery is dominant. CTA Head: The anterior and posterior cerebral circulations are patent. No hemodynamically significant stenosis, aneurysm, dissection, or arteriovenous malformation is shown. The right A1 segment appears absent and the anterior cerebral arteries are both supplied from the left RYLEE. origin of the right LOCK ASSEMBLER is noted. IMPRESSION: 1. No acute intracranial hemorrhage, evidence of acute territorial infarction, or other acute intracranial disease process. 2. No occlusion, hemodynamically significant stenosis, or dissection in the major cervical arteries. 3. No occlusion, hemodynamically significant stenosis, aneurysm, dissection, or arteriovenous malformation in the major intracranial arteries. Assessment of stenosis of the internal carotid arteries is based on NASCET criteria. ACT 112: Negative or not required by law. Electronically signed by: James Moreira M.D. 11/19/2022 8:19 PM Discharge Plan Visit Data Chief Complaint: Abnormal Labs/Diagnostic Testing Stated Complaint: RER BY DOC, ABNORMAL LABS, POSSIBLE STROKE ED Provider: Edwardo Peres Discharge Problem: Acute CVA (cerebrovascular accident), Hypertension, Anemia, Acute retinal artery occlusion, Elevated troponin Patient Disposition: Admitted As Inpatient Condition: Fair Forms Stand Alone Forms: My [facility] Prescriptions Prescriptions: No Action carvedilol 12.5 mg Tablet 12.5 mg PO BID famotidine 40 mg Tablet 40 mg PO QPM pantoprazole 20 mg Tablet,Delayed Release (Dr/Ec) 20 mg PO QAM levothyroxine [Synthroid] 100 mcg Tablet 100 mcg PO QAM lorazepam 0.5 mg Tablet 0.5 mg PO DAILY PRN (Reason: Anxiety) losartan 25 mg Tablet 25 mg PO BID folic acid 1 mg Tablet 1 mg PO QAM hydralazine 50 mg Tablet 50 mg PO TID magnesium oxide 250 mg magnesium Tablet 250 mg PO QPM [id number] Tablet 1 tab PO QAM rosuvastatin [Crestor] 5 mg Tablet 5 mg PO QPM cholecalciferol (vitamin D3) [Vitamin D3] 50 mcg (2,000 unit) Tablet 50 mcg PO QPM Vitron-C 65 mg iron- 125 mg Tablet,Delayed Release (Dr/Ec) 1 tab PO QAM aspirin 81 mg Capsule 81 mg PO QAM glyburide 2.5 mg Tablet 2.5 mg PO QAM Referrals Referrals: Conchis Kumar CRNP [Primary Care Provider] -
[2022-11-19] MEDS ORDERED: LOSARTAN POTASSIUM 25 MG TAB PO STA (20:47)
[2022-11-19] MEDS ORDERED: carvediloL 12.5 MG TAB PO ONE (20:47)
[2022-11-19] MEDS ORDERED: hydrALAZINE TAB 50 MG TAB PO STA (20:47)
--- NOTE | 2022-11-20 01:59 | History and Physical Report ---
DATE OF ADMISSION: 11/19/2022. CHIEF COMPLAINT: Acute stroke, right eye blindness. HISTORY OF PRESENT ILLNESS: This is an 82-year-old female with past medical history significant for type 2 diabetes, CAD status post stent in 2010, chronic kidney disease stage III-IV, anemia, hypertension, hyperlipidemia, obstructive sleep apnea on CPAP, history of TIA, chronic back pain, presents with right eye blindness. The patient says since yesterday morning, she could not see from the right eye, went to eye doctor and advised to go to retinal specialist and went to the retinal specialist today and advised to come to the ER for a stroke workup. In right eye there is a very blurred vision. Denies any headache, no dizziness, no weakness in hands or legs. She was ambulating okay. She has some balance issues because of back surgery, that is nothing new. No difficulty swallowing. Resting comfortably, hemodynamically stable. No earache, no runny nose, no sore throat. She has some cough since she had pneumonia end of September. Appetite is okay. No chest pain or shortness of breath, no nausea, no vomiting, no abdominal pain. Normal bowel and bladder movements.Somewhat tearful as she is very much independent until now. ALLERGIES: No known drug allergies. PAST MEDICAL HISTORY: As mentioned above. PAST SURGICAL HISTORY: Back surgery, appendectomy, cardiac catheterization and stent placement, cholecystectomy, colonoscopy, history of right hip replacement, bilateral cataract extraction. FAMILY HISTORY: Significant for diabetes, heart disease. SOCIAL HISTORY: Former smoker, quit smoking in 2006. No alcohol use. Lives alone at home. MEDICATIONS: The patient is on aspirin 81 mg p.o. daily, Coreg 12.5 mg p.o. b.i.d., vitamin D 50 mcg p.o. q.p.m., famotidine 40 mg p.o. p.m., folic acid 1 mg p.o. daily, Glyburide 2.5 mg p.o. a.m., hydralazine 50 mg p.o. t.i.d., levothyroxine 100 mcg p.o. daily, lorazepam 0.5 mg p.o. daily p.r.n., losartan 25 mg p.o. b.i.d., magnesium oxide 250 mg p.o. a.m., multivitamins with minerals 1 tablet p.o. a.m., Protonix 20 mg p.o. daily, Crestor 5 mg p.o. p.m., Vitron-C 1 tablet p.o. a.m. REVIEW OF SYMPTOMS: As per HPI. Rest of the review of systems is negative. PHYSICAL EXAMINATION: GENERAL: The patient is of moderate build, not in acute distress. VITAL SIGNS: Temperature 37, pulse 65, respiratory rate 18, blood pressure 134/57, oxygen 92% on room air. HEENT: Pupils equal, round and reactive to light. Oral mucosa moist. NECK: No JVD, no neck masses. CARDIOVASCULAR: S1 and S2 heard. Regular rate and rhythm. No murmur, no gallop. RESPIRATORY SYSTEM: Normal AP diameter. No accessory muscle use. No wheezing, no crackles. ABDOMEN: Soft, bowel sounds present, nontender, no distention. CENTRAL NERVOUS SYSTEM: Alert and oriented. Extraocular muscles intact, very blurred vision of the right eye. On examination, could count 2, but could not count 4. No facial droop. Speech is clear. Can raise brows and can smile. Power 5/5 in all extremities. Coordination of movements normal. No pronator drift. Sensation is intact. EXTREMITIES: No edema, no erythema. LABORATORY DATA: WBC 6.5, hemoglobin 11, hematocrit 33.8, platelets 140. PTT 1.1, INR 1, APTT 28.1. Sodium 143, potassium 4.5, chloride 103, bicarbonate 30, BUN 27, creatinine 1.65, serum glucose 104, calcium 9.4, magnesium 1.9, total bilirubin 0.7, AST 17, ALT 11, alkaline phosphatase 79. Troponin I high sensitivity 15 SARS-CoV-2 rapid test negative. IMAGING DATA: CTA of the head and neck unremarkable. CTA of the head, no acute findings. EKG: Normal sinus rhythm at rate of 64. Nonspecific T-wave abnormalities. No acute ST changes seen. ASSESSMENT AND PLAN: This is an 82-year-old female who presents with right eye blindness and possible stroke. 1. Right eye blindnesssince yesterday morning, seen by retinal specialist today and comes to ER for a stroke workup. Initial CTA of the head and neck and CT of the head were unremarkable. We will do the MRI scan, echocardiogram. Consult Neurology in a.m. The patient is already on aspirin but she is on low dose statin. Acn place on high-dose statin. We will follow the HbA1c level and lipid profile. Addition of Plavix as per Neurology. Closely monitor in the tele floor. 2. History of diabetes. We will hold home p.o. medication Glyburide. Placed on insulin sliding scale. Follow the blood sugars. 3. History of hypertension. On Coreg, hydralazine, losartan. We will monitor the blood pressure. 4. Hyperlipidemia on statin. Follow the lipid profile. 5. Gastroesophageal reflux disease, on Protonix. 6. Chronic kidney disease stage III-IV. Currently creatinine is 1.65, which seems to be around baseline. We will follow the repeat labs. 7. History of coronary artery disease, status post stents, on aspirin, beta sybil and statin. 8. Sleep apnea. On CPAP at bedtime. 9. Peripheral artery disease, status post left SFA in 2010 on aspirin and statin, . 10. Hypothyroidism, on Synthroid. 11. Anemia. Hemoglobin seems to be around baseline. 12.Anxiety. Ativan prn 13. Mild elevation of troponin. Asymptomatic.will follow repeat levels. 14. Deep venous thrombosis prophylaxis, placed on sequential compression devices for now. DISPOSITION: Closely monitor in the tele floor. Level 1 full code. PT/OT prior to discharge. Social service to help with discharge planning. Job ID: [id number] MTDD
[2022-11-20] MEDS ORDERED: LORazepam 0.5 MG TAB PO PRN (02:23)
[2022-11-20] MEDS ORDERED: CARBOHYDRATES FOR HYPOGLYCEMIA PO PRN (02:23)
[2022-11-20] MEDS ORDERED: POLYETHYLENE (MIRALAX) 17 GM PACK PO PRN (02:23)
[2022-11-20] MEDS ORDERED: SODIUM CHLORIDE 0.9% 1000ML 1,000 ML IV SCH (02:23)
[2022-11-20] MEDS ORDERED: NITROGLYCERIN SL 0.4 MG/TAB TAB SL PRN (02:23)
[2022-11-20] MEDS ORDERED: GLUCOSE 40% GEL 15 GM TUBE PO PRN (02:23)
[2022-11-20] MEDS ORDERED: DEXTROSE 50% 50 ML SYRINGE IV PRN (02:23)
[2022-11-20] MEDS ORDERED: PHARMACIST DISCHARGE MED REC CONSULT PRN (02:23)
[2022-11-20] MEDS ORDERED: ACETAMINOPHEN 325 MG TAB PO PRN (02:23)
[2022-11-20] MEDS ORDERED: GLUCAGON FOR INJ 1 MG VIAL SQ PRN (02:23)
[2022-11-20] MEDS ORDERED: GLUCOSE 10 TAB/TUBE PO PRN (02:23)
[2022-11-20 04:50] LABS: BUN Creatinine Ratio 15.2 (10-20); Chol HDL Ratio 3.1 (0-5); Creatinine Clr Calc Pharmacy 29.2 ml/min; Est GFR (African American) 34.7 ml/min; Est GFR (Non-African American) 29.9 ml/min; Potassium 4.5 mmol/L (3.5-5.1)
[2022-11-20 05:27] LABS: Basophils # (auto) 0.04 K/uL (0-0.2); Basophils % (auto) 0.7 %; Eosinophils # (auto) 0.17 K/uL (0-0.50); Eosinophils % (auto) 2.9 %; Hematocrit (blood only) 30.8 % (34.1-44.9); Hemoglobin 9.7 g/dl (12.0-16.0); Immature Granulocytes # (auto) 0.01 K/uL (0.00-0.02); Immature Granulocytes % (auto) 0.2 %; Lymphocytes # (auto) 1.31 K/uL (1.2-3.4); Lymphocytes % (auto) 22.6 %; Mean Corpuscular Hemoglobin 29.2 pg (25.0-34.0); Mean Corpuscular Hgb Conc 31.5 g/dL (32.0-36.0); Mean Corpuscular Volume 92.8 fL (80.0-100.0); Mean Platelet Volume 11.7 fL (9.4-12.3); Monocytes # (auto) 0.56 K/uL (0.24-0.82); Monocytes % (auto) 9.7 %; Neutrophils # (auto) 3.71 K/uL (1.4-6.5); Neutrophils % (auto) 63.9 %; Platelet Count 115 K/uL (130-400); RDW Standard Deviation 47.5 fL (36.4-46.3); Red Blood Count 3.32 M/uL (3.93-5.22)
[2022-11-20] MEDS: LEVOTHYROXINE SODIUM 100 MCG TABLET PO SCH (06:28)
[2022-11-20] MEDS: CEROVITE ADV FORMULA TAB PO SCH (08:40)
[2022-11-20] MEDS: LOSARTAN POTASSIUM 25 MG TAB PO SCH ×2 (08:40→20:53)
[2022-11-20] MEDS: PANTOprazole 40 MG TAB PO SCH (08:40)
[2022-11-20] MEDS: hydrALAZINE TAB 50 MG TAB PO SCH ×3 (08:40→20:51)
[2022-11-20] MEDS: ASCORBIC ACID 500 MG TAB PO SCH (08:40)
[2022-11-20] MEDS: ASPIRIN 81 MG ECTAB PO SCH (08:41)
[2022-11-20] MEDS: carvediloL 12.5 MG TAB PO SCH ×2 (08:42→20:52)
[2022-11-20] MEDS: FERROUS SULFATE 325 MG TAB PO SCH (08:43)
[2022-11-20] MEDS: FOLIC ACID 1 MG TAB PO SCH (08:43)
[2022-11-20] MEDS ORDERED: NON-FORMULARY MEDICATION (Iron,Carbonyl-Vitamin C [Vitron-C] 65 mg iron- 125 mg Tablet,Del PO SCH (09:00)
[2022-11-20] MEDS: INSULIN ASPART PER UNIT SC SCH ×4 (09:25→20:55)
--- NOTE | 2022-11-20 11:20 | Magnetic Resonance Report ---
Brain MRI WITHOUT CONTRAST HISTORY: Right eye loss of vision. acute CVA TECHNIQUE: Multiplanar multisequence MRI of the brain was performed without the use of contrast. Cont rast was unable to be administered due to the patient's GFR of less than 30. COMPARISON STUDY: Head CT 11/19/2022. FINDINGS: There is no mass, hematoma, midline shift, or acute infarct. The paranasal sinuses are levy r. The mastoid air cells are clear. The ventricles and sulci demonstrate mild age-related involutiona l changes. Scattered foci of T2 hyperintensity seen within the periventricular and subcortical white matter are nonspecific but suggestive of mild microvascular ischemic changes. The major vascular flow voids at the skull base are well-maintained. Evidence for prior bilateral lens replacement. Otherwis e, the orbits are unremarkable. IMPRESSION: 1. No acute infarct or intracranial hemorrhage. 2. Mild atrophy and microvascular ischemic changes are noted. 3. Normal orbits for age. ACT 112: Negative or not required by law. Electronically signed by: Robin Celaya M.D. 11/20/2022 8:54 AM
--- NOTE | 2022-11-20 11:20 | Electrocardiogram Report ---
Test Reason : Blood Pressure : / mmHG Vent. Rate : 064 BPM Atrial Rate : 064 BPM P-R Int : 158 ms QRS Dur : 072 ms QT Int : 396 ms P-R-T Axes : 063 -13 049 degrees QTc Int : 408 ms Poor data quality, interpretation may be adversely affected Normal sinus rhythm Low voltage QRS Nonspecific T wave abnormality Poor R wave progression, consider anterior IL vs. lead placement vs. LVH Abnormal ECG When compared with ECG of 12-APR-2022 15:23, Nonspecific T wave abnormality now evident in Anterolateral leads Confirmed by Anton Dimas ([id number]) on 11/20/2022 11:19:47 AM Referred By: REFERRED SELF Confirmed By:Richi Dimas
[2022-11-20 11:34] LABS: Estimated Average Glucose 186 mg/dl; Hemoglobin A1C 8.1 % (4.5-5.6)
--- NOTE | 2022-11-20 15:18 | Hospitalist Progress Note ---
Date of Service November 20, 2022 Assessment & Plan (1) Acute retinal artery occlusion: Plan 82-year-old lady with PMH of T2DM, CAD status post stent in 2010, CKD stage III -4, anemia, HTN, HLD, OLE on CPAP, TIA, chronic back pain presented to the ED 11/19 with complaint of right eye blindness. Patient reports that this started 1/23 AM when she woke up and had blurry/decreased vision through right eye but no associated pain or redness. No associated focal weakness or numbness or tingling per patient. She is being managed for the following: Right eye blindness Patient came in with complaint of sudden onset right eye blurry vision/blindness since 2 days [employer], no association with pain/redness of eyes/focal weakness elsewhere in the body. Patient was seen by retinal specialist on the day of admission, was sent to ER for stroke work-up. Admitting CT head/CTA head and neck with no acute findings and no significant stenosis or dissection or occlusion. Admitting MRI brain with no acute infarct or intracranial hemorrhage. Normal orbits for age. Admitting EKG with normal sinus rhythm, echo with EF of 50 to 55%/LV systolic function normal/LV size normal/no ASD. A1c of 8.1, LDL 49 at admission. Neurology consulted, await recommendation. Continue with her home aspirin and statin. Continue with neck telemetry, neurochecks. Diabetes, history of: Continue with sliding scale, A1c of 8.1, will need follow- up with PCP/diabetic clinic upon discharge for ongoing management of diabetes, will need optimization of diabetic medication on discharge. Other chronic medical conditions: HTN, HLD, GERD on Protonix, CKD stage III4, CAD status post stent, sleep apnea on at bedtime CPAP, PAD status post left SFA in 2010 on aspirin and statin, hypothyroidism on Synthroid, anemia, anxiety ---> continue home meds as able DVT prophylaxis: Heparin subcu Full code Admission and Anticipated Discharge Date Admission Date: November 19, 2022 Subjective Patient seen and examined at bedside as a follow-up of sudden loss of vision x right eye. Patient was lying in bed, on room air, NAD, reports no new acute event overnight, denies any headache or dizziness, reports eating okay and has passed swallow eval, denies any focal weakness or numbness and tingling, reports mini mal improvement in her right eye vision since it is started 2 days ago in the morning. Patient denies other review of symptoms. Physical Exam Physical Exam: GENERAL: Alert and oriented x3. NAD, on RA. HEENT: No pallor, no icterus. Pupils equal, round and reactive to light. Oral mucosa moist. Rt eye decreased/blurred vision; no redness, no opthalmoplegia. NECK: No JVD, no neck masses. HEART: S1 and S2 heard. Regular rate and rhythm. No murmur, no gallop. RESPIRATORY SYSTEM: Normal AP diameter. No accessory muscle use. No wheezing, no crackles. ABDOMEN: Soft, bowel sounds present, nontender, no distention. CENTRAL NERVOUS SYSTEM: No facial droop. Speech is clear. Obeys simple commands. Moves extremities. EXTREMITIES: No edema, no erythema seen. Results & Data Results & Data ([facility] [place]) Vital Signs (Past 12 Hours) Vital Signs Temp Pulse Resp BP Pulse Ox O2 Del Method 11/20/22 13:20 36.9 C 63 18 159/70 H 95 Room Air 11/20/22 11:39 37.0 C 57 L 20 145/72 H 95 Room Air 11/20/22 07:20 80 15 115/55 L Room Air 11/20/22 07:12 72 14 152/76 H 95 Room Air
--- NOTE | 2022-11-20 15:29 | Neurology Consultation ---
Date of Consultation November 20, 2022 Assessment & Plan (1) Acute CVA (cerebrovascular accident): Plan Neurology Consultation Assessment & Plan: Impression: pt with acute rt eye vision loss, likely due to retinal artery occlusion ischemic lesion in retina. no brain or brainstem stroke noted. no clear thrombus identified. Recommendations: * * Antiplatelet therapy: * DAPT: continue ASA and plavix for 90 days.After that, can continue single antiplatelet therapy. please add plavix 300mg loading dose today and 75mg po daily starting tomorrow. * Images: TTE with bubble pending * Permissive Hypertension next 24 and can return to normal BP. Keep SBP goal range less than 220. Avoid hypotension. Do not stop beta-sybil if on it. * * Long-term SBP goal less than 130. * Plenty of hydration including IV fluid (use isotonic solution) . Avoid hypovolemia and hypotension. * Initiate DVT prevention therapy * Avoid hypoglycemia, serum glucose goal during hospitalization: 140-180 * Long-term HgA1c goal less than 7 * Start statin if not on it.Long-term LDL goal of less than 70. * Head of bed up 30 degree if possible. * Stroke education * Telemetry monitoring.Please order MCOT (mobile cardiac outpatient telemetry) orICM (insertable confidential secretary) if never had door trimmer cardiac monitoring previously. And if found to have atrial flutter or fibrillation, should consider anticoagulation therapy if no contraindication. 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 Chart reviewed I have spent more than 50% educating patient about potential diagnosis and neurological evaluation and coordinating care with patient's treatment team. Total time spent: 80 min (this includes chart review and documentation) Dr. Akbar Dawson MD [facility] Neurology Chief Complaint: vision change HISTORY OF PRESENT ILLNESS:pt suddenly had rt eye vision change with blurred vision and unable to see much out of rt eye since yesterday. seen by ophthalmology and was told she likely has "blood vessel narrowing" and possible stroke. pt CTA head/neck negative. mri brain negative. pt doing ok. pt still with rt eye only can make out lights and large figures. no pain. Admission/Initial HPI:This is an 82-year-old female with past medical history significant for type 2 diabetes, CAD status post stent in 2010, chronic kidney disease stage III-IV, anemia, hypertension, hyperlipidemia, obstructive sleep apnea on CPAP, history of TIA, chronic back pain, presents with right eye blindness. The patient says since yesterday morning, she could not see from the right eye, went to eye doctor and advised to go to retinal specialist and went to the retinal specialist today and advised to come to the ER for a stroke workup. In right eye there is a very blurred vision. Denies any headache, no dizziness, no weakness in hands or legs. She was ambulating okay. She has some balance issues because of back surgery, that is nothing new. No difficulty swallowing. Resting comfortably, hemodynamically stable. No earache, no runny nose, no sore throat. She has some cough since she had pneumonia end of Dece. Appetite is okay. No chest pain or shortness of breath, no nausea, no vomiting, no abdominal pain. Normal bowel and bladder movements.Somewhat tearful as she is very much independent until now. Past Medical History: See chart Meds: See chart Social & Family History: See chart Review of Systems: Per HPI. Physical Exam: General Statement: not in acute distress, well appearing Mental Status: Oriented fully. Normal comprehension, no neglect, Fluent speech, logical thought process, Visuo-spatial function was intact. No apraxia, no L/R confusion. Cranial Nerves: RT eye only can make out light and large figure moving. can't finger count. PERRL.Extraocular movements were full with no nystagmus. Normal pursuit. 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 Facial m ovements were symmetric.Hearing was grossly intact.Palate elevated symmetrically.Sternocleidomastoid and trapezius muscles were 5/5 and equal bilaterally.Tongue extended midline. Motor: Strength was 5/5 and equal bilaterally. Normal tone.There were no abnormal movements or pronator drift. Sensory:intact to touch bilaterally Coordination: Finger to nose were intact bilaterally History of Present Illness Attending Physician: Citlalli Martinez MD Allergies Allergy/AdvReac Type Severity Reaction Status Date / Time No Known Allergies Allergy Verified 11/19/22 21:03 Home Medications Medication Instructions Recorded Confirmed Type aspirin 81 mg capsule 81 mg PO QAM 04/10/22 11/19/22 History carvedilol 12.5 mg tablet 12.5 mg PO BID 04/10/22 11/19/22 History cholecalciferol (vitamin D3) 50 50 mcg PO QPM 04/10/22 11/19/22 History mcg (2,000 unit) tablet (Vitamin D3) famotidine 40 mg tablet 40 mg PO QPM 04/10/22 11/19/22 History folic acid 1 mg tablet 1 mg PO QAM 04/10/22 11/19/22 History glyburide 2.5 mg tablet 2.5 mg PO QAM 04/10/22 11/19/22 History hydralazine 50 mg tablet 50 mg PO TID 04/10/22 11/19/22 History iron,carbonyl 65 mg-vitamin C 125 1 tab PO QAM 04/10/22 11/19/22 History mg tablet,delayed release (Vitron-C) levothyroxine 100 mcg tablet 100 mcg PO QAM 04/10/22 11/19/22 History (Synthroid) lorazepam 0.5 mg tablet 0.5 mg PO DAILY PRN Anxiety 04/10/22 11/19/22 History losartan 25 mg tablet 25 mg PO BID 04/10/22 11/19/22 History magnesium oxide 250 mg PO QPM 04/10/22 11/19/22 History hubnpifccvep-[id number] tablet 1 tab PO QAM 04/10/22 11/19/22 History pantoprazole 20 mg tablet,delayed 20 mg PO QAM 04/10/22 11/19/22 History release rosuvastatin 5 mg tablet (Crestor) 5 mg PO QPM 04/10/22 11/19/22 History Patient History Medical History Anemia Hx - taking iron, transfusion 2015 Anxiety Arthritis Right hip CAD (coronary artery disease) S/p stents to diagonal and circumflex 2010 Borderline significant distal Cx disease, not amendable to stenting, moderate nonobstructive CAD otherwise Carotid stenosis Nonobstructive/bilateral per cardio records Less than 50% stenosis bilaterally per carotid doppler 2019 per 08/2021 cardio note Chronic kidney disease Stage III Diabetes mellitus, type 2 NIDDM GERD (gastroesophageal reflux disease) Well controlled and stable Hyperlipidemia Pt denies- states she is on statin for maintenance Hypertension Hypothyroidism PAD (peripheral artery disease) S/p left SFA atherectomy, 2010 Sleep apnea cpap TIA (transient ischemic attack) 2007 per cardio records Surgical History (Updated 05/03/22 @ 17:19 by Sheila Tristan PA-C) History of appendectomy History of cardiac cath 02/2011 and 03/2011 Dr. Montano - stents placed History of cholecystectomy History of colonoscopy History of heart artery stent 03/01/2011 04/10/2011 - pt didn't feel right - went to doctor - had stress test - found blockage - Dr. 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) Vital Signs (Past 12 Hours) Vital Signs Temp Pulse Resp BP Pulse Ox O2 Del Method 11/20/22 13:20 36.9 C 63 18 159/70 H 95 Room Air 11/20/22 11:39 37.0 C 57 L 20 145/72 H 95 Room Air 11/20/22 07:20 80 15 115/55 L Room Air 11/20/22 07:12 72 14 152/76 H 95 Room Air
[2022-11-20] MEDS ORDERED: CLOPIDOGREL BISULFATE 300 MG TAB PO STA (16:02)
[2022-11-20] MEDS: HEPARIN SOD 5,000 UNIT/0.5 ML VIAL SQ SCH (20:52)
[2022-11-20] MEDS ORDERED: ROSUVASTATIN CALCIUM 5 MG TAB PO SCH (21:00)
[2022-11-20] MEDS ORDERED: FAMOTIDINE 20 MG TAB PO SCH (21:00)
[2022-11-20] MEDS ORDERED: MAGNESIUM OXIDE 400 MG TAB PO SCH (21:00)
[2022-11-20] MEDS ORDERED: CHOLECALCIFEROL 1,000 UNITS 25 MCG TAB PO SCH (21:00)
[2022-11-21] MEDS: LEVOTHYROXINE SODIUM 100 MCG TABLET PO SCH (05:50)
[2022-11-21 07:25] LABS: BUN Creatinine Ratio 13.9 (10-20); Calcium 8.9 mg/dl (8.5-10.1); Est GFR (African American) 32.9 ml/min; Est GFR (Non-African American) 28.4 ml/min; Potassium 4.3 mmol/L (3.5-5.1)
[2022-11-21] MEDS: ASCORBIC ACID 500 MG TAB PO SCH (08:47)
[2022-11-21] MEDS: INSULIN ASPART PER UNIT SC SCH ×2 (08:47→12:06)
[2022-11-21] MEDS: carvediloL 12.5 MG TAB PO SCH (08:48)
[2022-11-21] MEDS: LOSARTAN POTASSIUM 25 MG TAB PO SCH (08:48)
[2022-11-21] MEDS: HEPARIN SOD 5,000 UNIT/0.5 ML VIAL SQ SCH (08:48)
[2022-11-21] MEDS: hydrALAZINE TAB 50 MG TAB PO SCH (08:48)
[2022-11-21] MEDS: FERROUS SULFATE 325 MG TAB PO SCH (08:49)
[2022-11-21] MEDS: CEROVITE ADV FORMULA TAB PO SCH (08:49)
[2022-11-21] MEDS: PANTOprazole 40 MG TAB PO SCH (08:49)
[2022-11-21] MEDS: FOLIC ACID 1 MG TAB PO SCH (08:49)
[2022-11-21] MEDS: ASPIRIN 81 MG ECTAB PO SCH (08:49)
[2022-11-21] MEDS ORDERED: CLOPIDOGREL BISULFATE 75 MG TAB PO SCH (09:00)
[2022-11-21 09:28] LABS: Basophils # (auto) 0.05 K/uL (0-0.2); Basophils % (auto) 0.8 %; Eosinophils # (auto) 0.12 K/uL (0-0.50); Eosinophils % (auto) 1.8 %; Hematocrit (blood only) 30.6 % (37.0-47.0); Hemoglobin 9.8 g/dl (12.0-16.0); Immature Granulocytes # (auto) 0.05 K/uL (0.01-0.20); Immature Granulocytes % (auto) 0.8 %; Lymphocytes # (auto) 1.05 K/uL (1.2-3.4); Lymphocytes % (auto) 15.9 %; Mean Corpuscular Hemoglobin 29.5 pg (25.0-34.0); Mean Corpuscular Volume 92.2 fL (80.0-100.0); Mean Platelet Volume 12.2 fL (9.4-12.4); Monocytes % (auto) 7.6 %; Neutrophils # (auto) 4.83 K/uL (1.40-6.50); Neutrophils % (auto) 73.1 %; Platelet Count 95 K/uL (130-400); RDW Coefficient of Variation 13.8 % (11.5-14.5); RDW Standard Deviation 46.5 fL (36.4-46.3); Red Blood Count 3.32 M/uL (4.20-5.40)
--- NOTE | 2022-11-21 09:30 | Pharmacy Report ---
- Date of Service November 21, 2022 - Pharmacy CVA/TIA Medication Review Medications to Prevent Stroke handout has been added to the patients discharge packet. 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 Geriatric patients may be more susceptible to hypoglycemic effects with this agent. * Relayed to provider possible risks associated with medication and suggested considering a different agent with proven CVD benefits, such as a GLP-1 agonist or SGLT2 inhibitor. * Patient reluctant to changes in medications, provider plans to defer to their outpatient provider due to familiarity with patient so they can assess risks/benefits of such therapies.
[2022-11-21] MEDS ORDERED: STROKE PATIENT DISCHARGE STA (13:07)
--- NOTE | 2022-11-21 13:14 | Discharge Summary ---
Date of Service November 21, 2022 Admission HPI Per Admitting Provider DATE OF ADMISSION: 11/19/2022. CHIEF COMPLAINT: Acute stroke, right eye blindness. HISTORY OF PRESENT ILLNESS: This is an 82-year-old female with past medical history significant for type 2 diabetes, CAD status post stent in 2010, chronic kidney disease stage III-IV, anemia, hypertension, hyperlipidemia, obstructive sleep apnea on CPAP, history of TIA, chronic back pain, presents with right eye blindness. The patient says since yesterday morning, she could not see from the right eye, went to eye doctor and advised to go to retinal specialist and went to the retinal specialist today and advised to come to the ER for a stroke workup. In right eye there is a very blurred vision. Denies any headache, no dizziness, no weakness in hands or legs. She was ambulating okay. She has some balance issues because of back surgery, that is nothing new. No difficulty swallowing. Resting comfortably, hemodynamically stable. No earache, no runny nose, no sore throat. She has some cough since she had pneumonia end of September. Appetite is okay. No chest pain or shortness of breath, no nausea, no vomiting, no abdominal pain. Normal bowel and bladder movements.Somewhat tearful as she is very much independent until now. ALLERGIES: No known drug allergies. PAST MEDICAL HISTORY: As mentioned above. PAST SURGICAL HISTORY: Back surgery, appendectomy, cardiac catheterization and stent placement, cholecystectomy, colonoscopy, history of right hip replacement, bilateral cataract extraction. FAMILY HISTORY: Significant for diabetes, heart disease. SOCIAL HISTORY: Former smoker, quit smoking in 2006. No alcohol use. Lives alone at home. MEDICATIONS: The patient is on aspirin 81 mg p.o. daily, Coreg 12.5 mg p.o. b.i.d., vitamin D 50 mcg p.o. q.p.m., famotidine 40 mg p.o. p.m., folic acid 1 mg p.o. daily, Glyburide 2.5 mg p.o. a.m., hydralazine 50 mg p.o. t.i.d., levothyroxine 100 mcg p.o. daily, lorazepam 0.5 mg p.o. daily p.r.n., losartan 25 mg p.o. b.i.d., magnesium oxide 250 mg p.o. a.m., multivitamins with minerals 1 tablet p.o. a.m., Protonix 20 mg p.o. daily, Crestor 5 mg p.o. p.m., Vitron-C 1 tablet p.o. a.m. REVIEW OF SYMPTOMS: As per HPI. Rest of the review of systems is negative. Admission Exam Per Admitting Provider GENERAL: The patient is of moderate build, not in acute distress. VITAL SIGNS: Temperature 37, pulse 65, respiratory rate 18, blood pressure 134/57, oxygen 92% on room air. HEENT: Pupils equal, round and reactive to light. Oral mucosa moist. NECK: No JVD, no neck masses. CARDIOVASCULAR: S1 and S2 heard. Regular rate and rhythm. No murmur, no gallop. RESPIRATORY SYSTEM: Normal AP diameter. No accessory muscle use. No wheezing, no crackles. ABDOMEN: Soft, bowel sounds present, nontender, no distention. CENTRAL NERVOUS SYSTEM: Alert and oriented. Extraocular muscles intact, very blurred vision of the right eye. On examination, could count 2, but could not count 4. No facial droop. Speech is clear. Can raise brows and can smile. Power 5/5 in all extremities. Coordination of movements normal. No pronator drift. Sensation is intact. EXTREMITIES: No edema, no erythema. Principal Diagnosis CRAO Right eye blindness History of diabetes, A1c 8.1 Discharge Exam GENERAL: Alert and oriented x3. NAD, on RA. HEENT: No pallor, no icterus. Pupils equal, round and reactive to light. Oral mucosa moist. Rt eye decreased/blurred vision; no redness, no opthalmoplegia. NECK: No JVD, no neck masses. HEART: S1 and S2 heard. Regular rate and rhythm. No murmur, no gallop. RESPIRATORY SYSTEM: Normal AP diameter. No accessory muscle use. No wheezing, no crackles. ABDOMEN: Soft, bowel sounds present, nontender, no distention. CENTRAL NERVOUS SYSTEM: No facial droop. Speech is clear. Obeys simple commands. Moves extremities. EXTREMITIES: No edema, no erythema seen. Discharge Data Allergies Allergy/AdvReac Type Severity Reaction Status Date / Time No Known Allergies Allergy Verified 11/19/22 21:03 Consultations 11/19/22 20:45 ED Decision to Admit Stat 11/20/22 08:00 Consult Neurology Routine Ordered Studies 11/19/22 16:16 CT angio head w con Stat CT angio neck with con Stat CT head/brain wo con Stat 11/20/22 02:23 MR brain wo con Urgent Hospital Course (1) Acute retinal artery occlusion: Plan 82-year-old lady with PMH of T2DM, CAD status post stent in 2010, CKD stage III -4, anemia, HTN, HLD, OLE on CPAP, TIA, chronic back pain presented to the ED 11/19 with complaint of right eye blindness. Patient reports that this started 11/18 AM when she woke up and had blurry/decreased vision through right eye but no associated pain or redness. No associated focal weakness or numbness or tingling per patient. She is being managed for the following: Right eye blindness Patient came in with complaint of sudden onset right eye blurry vision/blindness since 2 days SOAPSTONER, no association with pain/redness of eyes/focal weakness elsewhere in the body. Patient was seen by retinal specialist on the day of admission, was sent to ER for stroke work-up. Admitting CT head/CTA head and neck with no acute findings and no significant stenosis or dissection or occlusion. Admitting MRI brain with no acute infarct or intracranial hemorrhage. Normal orbits for age. Admitting EKG with normal sinus rhythm, echo with EF of 50 to 55%/LV systolic function normal/LV size normal/no ASD. A1c of 8.1, LDL 49 at admission. Neurology evaled, appreciate recs. DAPT for 90 days then monotherapy. Pt made aware. Continue with her home aspirin and statin. Plavix added. f/u w/ PCP and retinal specialist on DC. Pt aware. Diabetes, history of: Continue with sliding scale, A1c of 8.1, will need follow- up with PCP/diabetic clinic upon discharge for ongoing management of diabetes, will need optimization of diabetic medication on discharge. Pt to coordinate diabetic clinic or PCP office for readjustment of her diabetic meds, pt not very interested in making any medication changes in hospital. Other chronic medical conditions: HTN, HLD, GERD on Protonix, CKD stage III4, CAD status post stent, sleep apnea on at bedtime CPAP, PAD status post left SFA in 2010 on aspirin and statin, hypothyroidism on Synthroid, anemia, anxiety ---> continue home meds as able Full code Physical therapy evaled, patient is being discharged home with following instruction at the point of discharge: Follow-up with your primary care physician within a week time and likely you will get labs CBC/CMP/magnesium/phosphorus. Follow-up with a retinal specialist in 1 to 2 weeks time upon discharge. Because of your right eye blindness, which is most likely an ischemic event, you are being started on Plavix on top of your home aspirin. You are supposed to take both aspirin and Plavix for 90 days and then you can be on only one of them, coordinate with your PCP or software publisher in 3 months. You will need Zio patch monitoring, coordinate with the PCP office upon your visit with PCP within a week time upon discharge. Because of your progressive kidney disease, you will most likely benefit from changing your current diabetic medication to a different one [GLP-1 agonist or SGLT2 inhibitor]. Coordinate with your PCP or diabetic clinic regarding changing your diabetic medication. Take your medications as prescribed. Please make sure that you are able to get your medications today by calling your pharmacy before you leave the hospital so that your treatment continuity is not broken. Home Health Attestation I certify that this patient is under my care and that I, or a physicians assistant manager airside operations working with me, had a face to-face encounter that meets the home health [id number] encounter requirements with this patient. The encounter with the patient was in whole, or in part, for the following medical condition, which is the primary reason for home health care (list medical condition): I certify that, based on my findings, the following services are medically necessary home health services: My clinical findings support the need for the above services because: Further, I certify that my clinical findings support that this patient is homebound (i.e. absences from home require considerable and taxing effort and are for medical reasons or yarsani services or infrequently or of short duration when for other reasons) because: Certification for Home Health Services: Based on the above findings, I certify that this patient is confined to the home and needs intermittent fdc care, physical therapy and/or speech therapy or continues to need occupational therapy. The patient is under my care, and I have initiated the establishment of the plan of care. This patient will be followed by a physician who will periodically review the plan of care. Total Time Total Time Spent Total Time Spent (In Minutes): 50 Discharge Plan Discharge Items Patient Disposition: Home - Self-Care Reason For Visit: CVA Discharge Diagnosis: CRAO Right eye blindness History of diabetes, A1c 8.1 Condition on Discharge: Fair Activity: Resume your previous activity Non-emergency contact: Primary Care Provider Call non-emergency contact if: you have any medication questions, your symptoms worsen and your pain is worsening Follow-up/Referrals: Conchis Kumar CRNP [Primary Care Provider] - Diet: Carb Consistent or DM2 and Heart Healthy Addtl Attending Provider Instructions: Follow-up with your primary care physician within a week time and likely you will get labs CBC/CMP/magnesium/phosphorus. Follow-up with a retinal specialist in 1 to 2 weeks time upon discharge. Because of your right eye blindness, which is most likely an ischemic event, you are being started on Plavix on top of your home aspirin. You are supposed to take both aspirin and Plavix for 90 days and then you can be on only one of them, coordinate with your PCP or software publisher in 3 months. You will need Zio patch monitoring, coordinate with the PCP office upon your vi sit with PCP within a week time upon discharge. Because of your progressive kidney disease, you will most likely benefit from changing your current diabetic medication to a different one [GLP-1 agonist or SGLT2 inhibitor]. Coordinate with your PCP or diabetic clinic regarding changing your diabetic medication. Take your medications as prescribed. Please make sure that you are able to get your medications today by calling your pharmacy before you leave the hospital so that your treatment continuity is not broken. Pending Studies at Discharge: No Stand-Alone Forms: [facility], Sm[facility] Cess[facility], Medications to Prevent Stroke Medications and DC Order Prescriptions: New clopidogrel 75 mg Tablet 75 mg PO QAM Qty: 30 0RF ferrous sulfate 325 mg (65 mg iron) Tablet,Delayed Release (Dr/Ec) 325 mg PO DAILY Qty: 30 0RF Continued carvedilol 12.5 mg Tablet 12.5 mg PO BID famotidine 40 mg Tablet 40 mg PO QPM pantoprazole 20 mg Tablet,Delayed Release (Dr/Ec) 20 mg PO QAM levothyroxine [Synthroid] 100 mcg Tablet 100 mcg PO QAM lorazepam 0.5 mg Tablet 0.5 mg PO DAILY PRN (Reason: Anxiety) losartan 25 mg Tablet 25 mg PO BID folic acid 1 mg Tablet 1 mg PO QAM hydralazine 50 mg Tablet 50 mg PO TID magnesium oxide 250 mg magnesium Tablet 250 mg PO QPM [id number]-[id number]-[id number] Tablet 1 tab PO QAM rosuvastatin [Crestor] 5 mg Tablet 5 mg PO QPM cholecalciferol (vitamin D3) [Vitamin D3] 50 mcg (2,000 unit) Tablet 50 mcg PO QPM Vitron-C 65 mg iron- 125 mg Tablet,Delayed Release (Dr/Ec) 1 tab PO QAM aspirin 81 mg Capsule 81 mg PO QAM glyburide 2.5 mg Tablet 2.5 mg PO QAM Discharge Orders: Discharge Order (Routine); Ordered 11/21/22 Ordered By: Citlalli Morris/Other Patient Handouts: Managing Type 2 Diabetes Admission Data Admit Date/Time: 11/19/22 23:20 Attending Provider: Citlalli Martinez Admit Provider: Sandeep Medina Primary Care Provider: Conchis Kumar Providers: Sandeep Medina ; Elijah Mae ; Austin Kee ; Kandy Radford ; Richelle Smith John E ; Schaefer, Kathleen ; Evaristo Reyes ; Anisha Mckeon ; Sudarshan Bryant ; Marilu Watt ; Elva Borja ; Akbar Dawson ; Didier Carbajal
--- NOTE | 2022-11-22 15:47 | Pharmacy Report ---
Pharmacist Stroke Counseling - Date of Service November 22, 2022 - Scope: Pharmacy has been consulted to provide medication discharge counseling for this patient admitted with [ischemic stroke] [hemorrhagic stroke] [transient ischemic attack] as per the Pharmacist Discharge Counseling for Stroke Patients Prot ocol. - Medications on Discharge: Home Medications Medication Instructions Recorded Confirmed aspirin 81 mg capsule 81 mg PO QAM 04/10/22 11/19/22 carvedilol 12.5 mg tablet 12.5 mg PO BID 04/10/22 11/19/22 cholecalciferol (vitamin D3) 50 50 mcg PO QPM 04/10/22 11/19/22 mcg (2,000 unit) tablet (Vitamin D3) famotidine 40 mg tablet 40 mg PO QPM 04/10/22 11/19/22 folic acid 1 mg tablet 1 mg PO QAM 04/10/22 11/19/22 glyburide 2.5 mg tablet 2.5 mg PO QAM 04/10/22 11/19/22 hydralazine 50 mg tablet 50 mg PO TID 04/10/22 11/19/22 iron,carbonyl 65 mg-vitamin C 125 1 tab PO QAM 04/10/22 11/19/22 mg tablet,delayed release (Vitron-C) levothyroxine 100 mcg tablet 100 mcg PO QAM 04/10/22 11/19/22 (Synthroid) lorazepam 0.5 mg tablet 0.5 mg PO DAILY PRN Anxiety 04/10/22 11/19/22 losartan 25 mg tablet 25 mg PO BID 04/10/22 11/19/22 magnesium oxide 250 mg PO QPM 04/10/22 11/19/22 vfyfqplyavcj-ptoqakou-rnpige tablet 1 tab PO QAM 04/10/22 11/19/22 pantoprazole 20 mg tablet,delayed 20 mg PO QAM 04/10/22 11/19/22 release rosuvastatin 5 mg tablet (Crestor) 5 mg PO QPM 04/10/22 11/19/22 New Rx's Medication Instructions Recorded clopidogrel 75 mg tablet 75 mg PO QAM #30 tabs 11/21/22 ferrous sulfate 325 mg (65 mg 325 mg PO DAILY #30 tabs 11/21/22 iron) tablet,delayed release - Action: The above medications, specifically ones for stroke treatment/prophylaxis, have been reviewed in detail with the patient and/or patient senior customer service representative(s) prior to discharge. This includes indication, common adverse reactions, drug interactions, and medication administration. Medication counseling has been employed using the teach-back method to ensure understanding. - Outcome: The patient and/or patient senior customer service representative(s) have demonstrated understanding of the medications. Additional comments: - Discussed stroke medications with Meenakshi for ~30 minutes post-discharge, using the "Medications to Prevent Stroke" handout in discharge paperwork - Emphasized need to f/u w PCP for eventual transition in ~3 months to a single platelet agent and also need for f/u to discuss Zio patch and diabetes medication change - Meenakshi asked about ferrous sulfate Rx given that she is already on Vitron-C, noting hesitation when she has been on other iron supplements in the past (severe GI upset even requiring IV iron transfusion at one point. She noted this has been followed closely by her PCP. I encouraged her to discuss her question/concerns about ferrous sulfate with her PCP - Meenakshi also asked about an interaction between her Lasix and her new Plavix as one of her retired nurse friends expressed a concern with the combination. I noted that there is no drug interaction and both medications should be taken as prescribed. Meenakshi acknowledged understanding. - Meenakshi expressed gratitude for her care she received here at [facility] Thank you for allowing pharmacy to be involved in the care of this patient. Please call [phone] with any additional questions
== END 2022-11-21 14:07 | disposition home or self-care (01) | DRG 123 ==
LOC: ED 15:52 → EDINP 23:20 → 2S 11-20 13:23